=== PATIENT | female | born 1935 | race African-American/Black ===

== ENCOUNTER 2016-08-16 09:54 | Inpatient (IN) ==
[2016-08-16 10:34] LABS: Basophils % 0.2 % (0.0-0.8); Eosinophils % 0.2 % (0.00-10.9); Hematocrit 37.7 VOL% (35.7-47.0); Hemoglobin 13.1 GM/DL (12.0-16.0); Immature Granulocytes % 0.6 %; Immature Granulocytes Absolute 0.07 #; Lymphocytes # 1.5 10*3/uL (1.4-4.0); Lymphocytes % 12.4 % (21.3-54.2); Mean Corpuscular HGB Conc 34.7 GM/DL (32-36); Mean Corpuscular Hemoglobin 32 PG (27-34); Mean Corpuscular Volume 91.1 FL (87-102); Mean Platelet Volume 9.1 FL (9.6-12.0); Monocytes # 0.6 10*3/uL (0.11-0.8); Monocytes % 4.6 % (1.7-12.7); Neutrophils # 10.1 10*3/uL (1.4-7.4); Platelet Count 338 T/CUMM (130-400); Red Blood Count 4.14 MC/CUMM (3.8-5.5); White Blood Count 12.3 T/CUMM (4-12)
[2016-08-16 10:51] LABS: Alanine Aminotransferase 18 U/L (13-56); Albumin 3.3 G/DL (3.4-5.0); Alkaline Phosphatase 64 U/L (45-117); Aspartate Amino Transferase 16 U/L (0-37); Bilirubin,Total < 0.39 MG/DL (0.2-1.0); Blood Urea Nitrogen 71 MG/DL (7-18); Calcium 11.2 MG/DL (8.5-10.1); Glucose 67 MG/DL (74-106); Magnesium 2.2 MG/DL (1.8-2.4); Osmolality,Calculated 288.1 MOS/KG (273-304); Potassium 5.7 MMOL/L (3.5-5.1); Sodium 135 MMOL/L (136-145); Total Protein 8.7 G/DL (6.4-8.3)
[2016-08-16 10:56] LABS: Apearance,Urine Slightly Hazy (Clear); Bacteria,Urine Occasional /HPF (Few); Bilirubin,Urine Negative (Negative); Blood, Urine Negative (Negative); Glucose,Urine (UA) Negative (Negative); Ketones,Urine Negative (Negative); Mucus,Urine Occasional /LPF (Occasional); Nitrite,Urine Negative (Negative); Protein,Urine 30 MG/DL; RBC,Urine 1 /HPF (0-4); Squamous Epithelial Cell,Urine Occasional /HPF (0-10); Urine Color Yellow (Yellow); Urine Specific Gravity 1.009 (1.001-1.035); Urine Urobilinogen < 2.0 EU/DL (0.2-1.0); WBC,Urine 1 /HPF (0-6)
--- NOTE | 2016-08-16 11:11 | XRay Report ---
History: Abdominal pain and distention Date: 08/16/2016 Study: Chest x-ray AP portable Comparison exam: June 01, 2016 There is stable cardiomegaly. The mediastinal contours are unchanged. The pulmonary vasculature is not engorged. The lungs and pleural spaces are generally clear. There is mild thoracic spondylosis. Impression: No definite acute process compared to the previous study. Mild cardiomegaly PROCEDURE INTERPRETED AT [facility] DEPARTMENT OF RADIOLOGY Final Report Signed by: Dr. Lisa Holguin
[2016-08-16] MEDS ORDERED: DEXTROSE 50% 25 GM/50 ML VIAL IV STA (11:30)
--- NOTE | 2016-08-16 11:31 | CT Report ---
History: Abdominal pain and distention Date: 08/16/2016 Study: CT abdomen and pelvis without contrast Comparison exam: January 17, 2016 Technique: Spiral CT sections were obtained from the lung bases to the pubic symphysis without contrast. The CT exam was performed using one or more of the following dose reduction techniques: Automated exposure control, adjustment of the mA and/or kV according to patient size, or use of iterative reconstruction technique. CT abdomen: There is some minor strandy atelectasis/infiltrate in the left lower lobe. There is no gross pleural or pericardial effusion. There is no evidence of pneumoperitoneum. The gallbladder is surgically absent. Surgical clips are noted to be associated with the posterior gastric wall as before. The liver, spleen, pancreas, bile ducts, and adrenal glands are unchanged. There is no gross renal parenchymal abnormality. There is no hydronephrosis. There is a 4 mm nonobstructing renal stone noted in upper pole calyx on the left. There is no aneurysm of the moderately calcified abdominal aorta. The colon is slightly more distended than small bowel and is noted to contain a significant amount of fluid such as that which can be seen with diarrhea. There is no definite focal inflammatory wall thickening of the colon. CT pelvis: Some occasional small myometrial calcifications compatible with uterine leiomyomata are present. There is no abnormal fluid collection within the pelvis. There is moderate distention of the urinary bladder. No soft tissue mass or pelvic lymphadenopathy is seen. Impression: The colon is slightly more distended than small bowel, though no maeve mechanical bowel obstruction is appreciated. There is large amount of fluid in the colon such as that which can be seen with diarrhea. No definite focal inflammatory wall thickening of the colon is seen. Left nephrolithiasis without hydronephrosis or ureterolithiasis Nonspecific mild strandy and hazy left lower lobe atelectasis/infiltrate Other nonacute findings discussed above PROCEDURE INTERPRETED AT [facility] DEPARTMENT OF RADIOLOGY Final Report Signed by: Dr. Lisa Holguin
[2016-08-16] MEDS ORDERED: DEXTROSE 50% 25 GM/50 ML VIAL IV ONE (11:32)
--- NOTE | 2016-08-16 11:32 | Emergency Department Note ---
Judith Etienne Brittany, am scribing for, and in the presence of, Yimi Kern MD 10:45. Erlin Etienne Phillip K, MD, personally performed the services described in this documentation, ascribed by Jaqui Wong in my presence, and it is both accurate and complete . Arrival - Arrival Chief Complaint: Weakness Stated Complaint: weakness ED Nursing Triage Note: Pt's sitter called EMS for c/o generalized weakness and fatigue. pt has been home after being at skilled nursing for approx 1 week. when questioned, pt's only complaint is "short winded." pt denies chest pain. Glucose 76mg/dl, pt has not eaten breakfast. Mode of Arrival: Stretcher Limitations: No Limitations Source: Patient Time Seen by Provider: 08/16/16 10:17 - History of Present Illness HPI Narrative: This will be limited secondary to pt's dementia. This is an 81 y/o black female , who presents to the ED by EMS with c/o abdominal pain which started last night. She reports her last BM was last night. She denies a fever, nausea or vomiting. Pt has no other complaints/pain in the ED at this time. PT has a PMHx of CHF, HTN, NH, A-fib, NIDDM, thyroid disorder, dementia, GERD, adn anemia. PT has had a cardiac cath, cholecystectomy, and thyroid surgery. Pt has a family medical Hx of cancer, diabetes, heart disease, HTN, and stroke. Pt is a current every day smoker. Onset (ago): hour(s) (last night) Consistency: constant Severity: moderate Allergies/Adverse Reactions: Allergies Allergy/AdvReac Type Severity Reaction Status Date / Time carbamazepine [From Tegretol] Allergy Unknown Unknown/Unable Verified 08/16/16 10:05 to obtain Home Medications: Home Medications Medication Instructions Recorded Confirmed Type Donepezil HCl 10 mg PO BEDTIME 07/13/15 06/02/16 History Pantoprazole Sodium 40 mg PO BID 07/13/15 06/02/16 History Memantine HCl [Namenda] 5 mg PO BEDTIME 01/08/16 06/02/16 History Aspirin EC Tab 81 mg PO DAILY tablet 01/13/16 06/02/16 Rx Levothyroxine Tab [Synthroid Tab] 125 mcg PO DAILY 01/16/16 06/02/16 History Sucralfate 1 gm PO BIDAC 01/16/16 06/02/16 History Apixaban [Eliquis] 2.5 mg PO BID #30 tablet 02/02/16 06/02/16 Rx Glimepiride [Amaryl] 2 mg PO DAILY W/BREAKFAST #30 02/02/16 06/02/16 Rx tablet Furosemide 20 mg PO DAILY 06/02/16 06/02/16 History Lisinopril 5 mg PO DAILY 06/02/16 06/02/16 History Multivitamin with Minerals [One 1 each PO DAILY 06/02/16 06/02/16 History Daily Plus Minerals] Nitroglycerin Sl Tab [Nitrostat] 0.4 mg SL Q5M PRN 06/02/16 06/02/16 History Review of System - Review of System 12 point system: reviewed and no additional remarkable complaints except as stated - Review of System Constitutional: Absent: fever Gastrointestinal: Present: abdominal pain. Absent: nausea, vomiting, diarrhea Medical,Surgical,& Family Hx - Medical History Cardio: History of: Cardiac Dysrhythmia (A-Fib), CHF, CAD, Hypertension, NH, Cardiovascular Problems Neurology: History of: Dementia No history of: Brain Aneurysm, Cerebral Hemorrhage, Cerebrovascular Accident , Cerebral Palsy, Migraine, Multiple Sclerosis, Parkinson's Disease, Peripheral Neuropathy, Seizures, TIA, Vertigo, Neurologocal Cancer HEENT: History of: Dental Problems (Missing lower teeth, lost her lower dentures.) No history of: Ear Problem, Eye Problem, Glaucoma, Oral Cancer, HEENT Problems Endocrine: History of: Diabetes Mellitus (NIDDM), Thyroid Disorder (Goiter was removed, but she can't remember when.) No history of: Adrenal Disease, Diabetes Mellitus (IDDM), Endocrine Cancer, Endocrine Problems Rheumatology: No history of;: Psoriasis, Sjogrens, Systemic Lupus Erythematosus Gastrointestinal: History of: GERD Musculoskeletal: History of: Musculoskeletal Problems (arthritis, pain in left shoulder) No history of: Amputation Hematology: History of: Anemia (Takes iron pills.) No history of: Blood Transfusion Reaction, Bleeding Problems, Clotting Problems, Sickle Cell Disease, Hematologic Cancer, Blood Disorders Other: No history of: Anesthesia Reactions, Anaphylaxis, Cancer, Eczema, HIV, Malignant Hyperthermia, MRSA, Vancomycin-Resistant Enterococci, Skin Problems, Miscellaneous Medical Problems - Surgical History Cardiac Surgeries: Sugical HX of: Cardiac Catheterization Thoracic Surgeries: Patient denies;: Organ Transplant, Lobectomy Neurologic Surgeries: Patient denies: Brain Aneurysm, Cerebral Hemorrhage, Neurologic Surgery HEENT Surgeries: Surgical HX of: Thyroid Surgery (Goiter was removed, but she can't remember when.) Patient denies: Eye Surgery, Tonsilectomy & Adenoidectomy Abdominal Surgeries: Surgical HX of: Cholecystectomy Patient denies: Abdominal Surgery Reproductive Surgeries: Patient denies;: Genitourinary Surgery, Gynecologic Surgery Orthopedic Surgeries: Patient denies;: Implanted Devices, Orthopedic Surgery, Spinal Surgery, Total Hip Replacement, Total Knee Replacement - Family History Family History: Reports;: Family Cancer (Daughter from kidney cancer.), Family Diabetes (Mother), Family Heart Disease (Father), Family Hypertension ( Father), Family Stroke (Father) - Social History Smoking Status: Current every day smoker Frequency of Alcohol Use: None Type of Drug Use: None Exam Vital Signs: Vital Signs Temperature 97.4 F L 08/16/16 09:54 Pulse Rate 96 H 08/16/16 09:54 Respiratory Rate 16 08/16/16 09:54 Blood Pressure 114/75 08/16/16 09:54 O2 Sat by Pulse Oximetry 96 08/16/16 09:54 - General General appearance: alert (Alert to place and person), in no apparent distress - Head Head exam: Present: atraumatic, normocephalic, normal inspection - Eye Eye exam: Present: normal appearance, PERRL, EOMI, scleral icterus. Absent: miosis, mydriasis - ENT ENT exam: Present: normal exam, normal oropharynx, mucous membranes moist, TM's normal bilaterally, normal external ear exam - Neck Neck exam: Present: normal inspection, full ROM, trachea midline. Absent: tenderness, meningismus, lymphadenopathy, thyromegaly - Chest Chest inspection: Present: normal inspection, symmetric chest wall rise. Absent : tenderness, rash, abscess - Respiratory Respiratory exam: Present: normal lung sounds bilaterally. Absent: rales, respiratory distress, rhonchi, stridor, wheezes - Cardiovascular Cardiovascular exam: Present: normal rhythm, tachycardia - Abdominal Exam Abdominal exam: Present: soft, distention, hyperactive bowel sounds (High- pitched, tinkling sounds ). Absent: tenderness (Abdomen is NTTP), guarding, rebound, rigidity - Rectal Exam Rectal exam: Present: heme (-) stool. Absent: fecal impaction - Extremities Exam Extremities exam: Present: normal inspection, full ROM, normal capillary refill. Absent: tenderness, pedal edema, joint swelling, calf tenderness - Back Exam Back exam: Present: normal inspection, full ROM, rashes. Absent: tenderness, muscle spasm - Neurological Exam Neurological exam: Present: alert, CN II-XII intact, other (Unable to move BLE off the stretcher, full time is is weak but equal. ). Absent: oriented X3 (Oriented to place and person), motor sensory deficit - Psychiatric Psychiatric exam: Present: normal affect, normal mood. Absent: depressed, agitated, anxious, flat affect, manic - Skin Skin exam: Present: warm, dry, intact, normal color, erythema. Absent: rash, cyanosis, diaphoresis Course Course Narrative: Admitted to the hospitalist. Results - Labs CBC & BMP: 08/16/16 10:14 08/16/16 10:14 Lab Results: I have reviewed the patients labs Labs: Laboratory Tests 08/16/16 08/16/16 08/16/16 10:14 10:14 10:14 WBC 12.3 H RBC 4.14 Hgb 13.1 Hct 37.7 MCV 91.1 MCH 32 MCHC 34.7 RDW 15.0 Plt Count 338 MPV 9.1 L Neut % (Auto) 82.0 H Lymph % (Auto) 12.4 L [place] % (Auto) 4.6 Eos % (Auto) 0.2 Baso % (Auto) 0.2 Neut # (Auto) 10.1 H Lymph # (Auto) 1.5 [place] # (Auto) 0.6 Eos # (Auto) 0.0 Baso # (Auto) 0.0 Immature Gran % 0.6 Nucleated RBC % 0.0 Immature Gran # 0.07 Nucleated RBCs # 0.00 Sodium 135 L Potassium 5.7 H Chloride 111 H Carbon Dioxide 12 L Anion Gap 17.7 H BUN 71 H Creatinine 3.10 H GFR Calculation 16 BUN/Creatinine Ratio 22.00 H Glucose 67 L Calculated Osmolality 288.1 Calcium 11.2 H Magnesium 2.2 Total Bilirubin < 0.39 AST 16 ALT 18 Alkaline Phosphatase 64 B-Natriuretic Peptide Total Protein 8.7 H Albumin 3.3 L Globulin 5.4 H Albumin/Globulin Ratio 0.6 L Lipase 319.0 Urine Color Yellow Urine Appearance Slightly hazy Urine pH 5.0 Ur Specific [place] 1.009 Urine Protein 30 Urine Glucose (UA) Negative Urine Ketones Negative Urine Blood Negative Urine Nitrate Negative Urine Bilirubin Negative Urine Urobilinogen < 2.0 H Urine Leukocytes Negative Urine RBC 1 Urine WBC 1 Ur Squamous Epith Cells Occasional Urine Bacteria Occasional Urine Mucus Occasional Ur Culture Indicated? Not indicated 08/16/16 10:37 WBC RBC Hgb Hct MCV MCH MCHC RDW Plt Count MPV Neut % (Auto) Lymph % (Auto) [place] % (Auto) Eos % (Auto) Baso % (Auto) Neut # (Auto) Lymph # (Auto) [place] # (Auto) Eos # (Auto) Baso # (Auto) Immature Gran % Nucleated RBC % Immature Gran # Nucleated RBCs # Sodium Potassium Chloride Carbon Dioxide Anion Gap BUN Creatinine GFR Calculation BUN/Creatinine Ratio Glucose Calculated Osmolality Calcium Magnesium Total Bilirubin AST ALT Alkaline Phosphatase B-Natriuretic Peptide 161 H Total Protein Albumin Globulin Albumin/Globulin Ratio Lipase Urine Color Urine Appearance Urine pH Ur Specific [place] Urine Protein Urine Glucose (UA) Urine Ketones Urine Blood Urine Nitrate Urine Bilirubin Urine Urobilinogen Urine Leukocytes Urine RBC Urine WBC Ur Squamous Epith Cells Urine Bacteria Urine Mucus Ur Culture Indicated? - EKG EKG results: interpreted by ERMD, sinus rhythm (Left bundle branch block) - Diagnostic Findings Procedure: Chest x-ray: report reviewed by me (No definite acute process compared to the previous study. Mild cardiomegaly. ), CT Abdomen and Pelvis: report reviewed by me (The colon is slightly more distended than small bowel, though no maeve mechanical bowel obstruction is appreciated. There is large amout of fluid in the colon such as that which can be seen with diarrhea. No definited focal inflammatory wall thickening of the colon is seen. ) Disposition Clinical Impression: Dehydration, Diarrhea, Abdominal distention, Acute on chronic renal failure, Hypoglycemia, Debility, High anion gap metabolic acidosis, Hyperkalemia, Metabolic acidosis Case discussed with: patient's physician Disposition: Still a Patient Condition: Guarded
[2016-08-16] MEDS ORDERED: SODIUM CHLORIDE 0.9% 500 ML IV STA (11:39)
[2016-08-16] MEDS ORDERED: SODIUM CHLORIDE 0.9% 1,000 ML IV SCH (13:48)
[2016-08-16] MEDS ORDERED: ONDANSETRON 4 MG/2 ML VIAL IV PRN (13:48)
--- NOTE | 2016-08-16 14:32 | Hospitalist History & Physical ---
<Bobby Wilkes - Last Filed: 08/16/16 15:12> Assessment and Plan (1) Abdominal distention Status: Acute Assessment and plan: CT revealed 'no maeve mechanical obstruction: Slightly more distended and small bowel'. Current Visit: Yes (2) Acute on chronic renal failure Status: Acute Assessment and plan: Consult nephrology to follow patient. BUN/creatinine has increased to 71/3.1 today from 33 on 06/02/16. Current Visit: Yes (3) Debility Status: Acute Current Visit: Yes (4) Dehydration Status: Acute Assessment and plan: Gentle hydration. Recheck labs in a.m. Current Visit: Yes (5) Diarrhea Status: Acute Assessment and plan: Clear liquid diet. Gentle hydration. Current Visit: Yes (6) Hyperkalemia Status: Acute Assessment and plan: Potassium is 5.7. Cardiac monitoring of patient. Recheck labs in a.m. Current Visit: Yes (7) Hypoglycemia Status: Acute Assessment and plan: Accu-Cheks before meals at bedtime. Hold medications for now. Current Visit: Yes (8) Altered level of consciousness Status: Acute Assessment and plan: Pt. has dementia. Pt does also have elevated white counts so further labs will be obtained. Current Visit: No History of Present Illness Chief complaint: Weakness History of present illness: Ms. Abel is a 81 year old black female with a history of CHF, hypertension, NC, A. fib, diabetes, thyroid disorder, dementia, GERD, and anemia that presented to the ED today for further evaluation. Patient is accompanied by her daughter who is present at bedside and provides history. Patient had been in a 20 day rehab facility in [place] and was just released home on Tuesday. Patient has 24-hour janitor caretaker in home with her. Patient's daughter states that since her release home she has been experiencing weakness and fatigue as well as diarrhea. She also reports that the patient began to have some abdominal pain. She stated that the patient has been having issues with diarrhea since Tuesday and that on Tuesday she had at least 5 diarrhea stools. On examination, patient is oriented to self only. CT of abdomen and pelvis revealed no maeve mechanical bowel obstruction although the colon is slightly more distended than the small bowel. There was also a large amount of fluid in the colon. White blood count was 4.3, K5.7, BUN 71, creatinine 3.1. Patient will be admitted to the hospitalist service for further evaluation and treatment. Home Medications Medication Instructions Recorded Confirmed Type Donepezil HCl 10 mg PO BEDTIME 07/13/15 06/02/16 History Pantoprazole Sodium 40 mg PO BID 07/13/15 08/16/16 History Levothyroxine Tab [Synthroid Tab] 125 mcg PO DAILY 01/16/16 08/16/16 History Sucralfate 1 gm PO BIDAC 01/16/16 08/16/16 History Apixaban [Eliquis] 2.5 mg PO BID #30 tablet 02/02/16 06/02/16 Rx Furosemide 20 mg PO DAILY 06/02/16 08/16/16 History Lisinopril 5 mg PO DAILY 06/02/16 08/16/16 History Nitroglycerin Sl Tab [Nitrostat] 0.4 mg SL Q5M PRN 06/02/16 08/16/16 History Dexlansoprazole [Dexilant] 08/16/16 History Glimepiride [Amaryl] 4 mg PO BID 08/16/16 08/16/16 History Linagliptin [Tradjenta] 5 mg PO DAILY 08/16/16 08/16/16 History Megestrol Acetate 200 ml PO TID W/MEALS 08/16/16 08/16/16 History Allergies Allergy/AdvReac Type Severity Reaction Status Date / Time carbamazepine [From Tegretol] Allergy Unknown Unknown/Unable Verified 08/16/16 10:05 to obtain Medical,Surgical,& Family Hx - Medical History Cardio: History of: Cardiac Dysrhythmia (A-Fib), CHF, CAD, Hypertension, NC, Cardiovascular Problems Psychological: No history of: Anxiety Disorders, ADHD, Behavior Problems, Bipolar Disorder, Depression, Previous Suicide Attempt, Psychiatric/Substance Abuse Tx, Schizophrenia, Violent Behavior, Psychiatric Problems Neurology: History of: Dementia No history of: Brain Aneurysm, Cerebral Hemorrhage, Cerebrovascular Accident , Cerebral Palsy, Migraine, Multiple Sclerosis, Parkinson's Disease, Peripheral Neuropathy, Seizures, TIA, Vertigo, Neurologocal Cancer HEENT: History of: Dental Problems (Missing lower teeth, lost her lower dentures.) No history of: Ear Problem, Eye Problem, Glaucoma, Oral Cancer, HEENT Problems Endocrine: History of: Diabetes Mellitus (NIDDM), Thyroid Disorder (Goiter was removed, but she can't remember when.) No history of: Adrenal Disease, Diabetes Mellitus (IDDM), Endocrine Cancer, Endocrine Problems Rheumatology: No history of;: Psoriasis, Sjogrens, Systemic Lupus Erythematosus Gastrointestinal: History of: GERD Musculoskeletal: History of: Musculoskeletal Problems (arthritis, pain in left shoulder) No history of: Amputation Hematology: History of: Anemia (Takes iron pills.) No history of: Blood Transfusion Reaction, Bleeding Problems, Clotting Problems, Sickle Cell Disease, Hematologic Cancer, Blood Disorders Other: No history of: Anesthesia Reactions, Anaphylaxis, Cancer, Eczema, HIV, Malignant Hyperthermia, MRSA, Vancomycin-Resistant Enterococci, Skin Problems, Miscellaneous Medical Problems - Surgical History Cardiac Surgeries: Sugical HX of: Cardiac Catheterization Thoracic Surgeries: Patient denies;: Organ Transplant, Lobectomy Neurologic Surgeries: Patient denies: Brain Aneurysm, Cerebral Hemorrhage, Neurologic Surgery HEENT Surgeries: Surgical HX of: Thyroid Surgery (Goiter was removed, but she can't remember when.) Patient denies: Eye Surgery, Tonsilectomy & Adenoidectomy Abdominal Surgeries: Surgical HX of: Cholecystectomy Patient denies: Abdominal Surgery Reproductive Surgeries: Patient denies;: Genitourinary Surgery, Gynecologic Surgery Orthopedic Surgeries: Patient denies;: Implanted Devices, Orthopedic Surgery, Spinal Surgery, Total Hip Replacement, Total Knee Replacement - Family History Family History: Reports;: Family Cancer (Daughter from kidney cancer.), Family Diabetes (Mother), Family Heart Disease (Father), Family Hypertension ( Father), Family Stroke (Father) - Social History Smoking Status: Former smoker Frequency of Alcohol Use: None Type of Drug Use: None Marital Status: 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 Absent: periorbital swelling Pupils: Present: SAADIA. Absent: dilated - Respiratory Respiratory exam: Present: clear to auscultation bilaterally. Absent: wheezes - Cardiovascular Cardiovascular exam: Present: regular rate and rhythm - GI/Abdominal GI/Abdominal exam: Present: normal bowel sounds, soft. Absent: tenderness - Extremities Exam Extremities exam: Present: normal capillary refill, full ROM. Absent: edema - Neurological Exam Neurological exam: Present: altered - Psychiatric Psychiatric exam: Absent: normal affect, normal mood - Skin Skin exam: Present: normal color, warm, dry Results - Labs CBC & BMP: 08/16/16 10:14 08/16/16 10:14 Lab Results: I have reviewed the past 24 hour labs Quality Measures - Stroke Symptom Onset Unknown: No <Monica Xiong - Last Filed: 08/16/16 16:12> History of Present Illness History of present illness: Ms. Abel is a 81 year old female with multiple medical issues who was recently sent home from a Nursing facility. Her health status began deteriorating at home and family members wanted her evaluated. Plan I agree with the above management CT head Hydrate gently and hold bp meds for now BC SSC/accuchecks Avoid nephrotoxics Kayexalate x1 Labs in am Exam - Constitutional Vitals: Period Temp Pulse Resp BP Sys/[place] Pulse Ox Last 24 Hr 97.4 F-97.4 F 91-100 16-18 109-129/69-83 96-100 Results - Labs CBC & BMP: 08/16/16 10:14 08/16/16 10:14
[2016-08-16] MEDS ORDERED: NITROGLYCERIN SL 0.4 MG TABLET SL PRN (15:11)
[2016-08-16] MEDS: SUCRALFATE 1 GM TABLET PO SCH (16:05)
[2016-08-16] MEDS: ENOXAPARIN 30 MG/0.3 ML SYRINGE SUBCUT SCH (16:05)
--- NOTE | 2016-08-16 16:06 | CT Report ---
CT head/brain wo con INDICATION: Altered mental status/confusion decreased level of consciousness The total DLP is 970 mGy*cm. COMPARISON: Noncontrast CT head dated January 27, 2016 Technique: Serial axial tomographic images of the brain were obtained without the use of intravenous contrast. Dose reduction: This CT exam was performed using one or more of the following dose reduction techniques: Automated exposure control, automated adjustment of the mA and/or KV according to patient size, or use of iterative reconstruction technique. Findings: Advanced generalized atrophy is noted with mild prominence of the sulci and cortical volume loss. Periventricular white matter hypodensity changes are noted bilaterally which do not demonstrate mass effect and are nonspecific but favored to represent sequela of chronic microvascular ischemia. There is also suggestion of hypodensity within the brainstem, which may be related to artifact from adjacent prominent osseous structures near the skull base versus underlying microvascular ischemic changes. There is no evidence of vascular territory infarct or acute intracranial hemorrhage. The madrigal-white matter differentiation is generally maintained. There is no hydrocephalus. The basilar cisterns are patent. The visualized paranasal sinuses, mastoid air cells and middle ear cavities are predominantly clear. The included orbits and their contents appear within normal limits. The visualized osseous structures and overlying soft tissues of the skull and face demonstrate no acute abnormality. IMPRESSION: No acute intracranial hemorrhage or vascular territory infarction. Advanced atrophy and sequela of chronic microvascular ischemia. PROCEDURE INTERPRETED AT [facility] DEPARTMENT OF RADIOLOGY Final Report Signed by: Irvin Baires
[2016-08-16] MEDS ORDERED: SODIUM POLYSTYRENE SULFATE 15 GM/60 ML BOTTLE PO ONE (16:11)
[2016-08-16] MEDS: INSULIN REGULAR 100 UNIT/ML SUBCUT SCH ×2 (16:30→20:05)
[2016-08-16] MEDS ORDERED: SODIUM BICARBONATE 50 MEQ/50 ML VIAL IV ONE (17:14)
--- NOTE | 2016-08-16 17:19 | Nephrology Consult Note ---
History of Present Illness Chief complaint: ARF with volume depletion History of present illness: Ms. Abel is a 81 year old female brought in by her family from recent discharge from a [facility]dc. She has been having some diarrhea and eating and drinking very poorly. Her creatinine is 3.1 and in May was about 1. Past history significant for diabetes multiple medical problems. She is bedbound at present. On exam she is arousable but keeps her eyes closed neck veins are absolutely flat and skin is doughy. Heart without rub or gallop lungs are clear abdomen mildly protuberant but soft. Extremities without edema. Further review of lab reveals a metabolic acidosis with a measured bicarb of 12 which has resulted in a potassium of 5.7. Chest x-ray reveals no evidence of volume overload. Impression: #1 acute renal failure secondary to volume depletion #2 volume depletion secondary to diarrhea #3 metabolic acidosis secondary to diarrhea #4 hyperkalemia secondary to metabolic acidosis. Plan will increase IV fluids. #2 administer intravenous bicarbonate. Home Medications Medication Instructions Recorded Confirmed Type Donepezil HCl 10 mg PO BEDTIME 07/13/15 08/16/16 History Pantoprazole Sodium 40 mg PO BID 07/13/15 08/16/16 History Levothyroxine Tab [Synthroid Tab] 125 mcg PO DAILY 01/16/16 08/16/16 History Sucralfate 1 gm PO BIDAC 01/16/16 08/16/16 History Furosemide 20 mg PO DAILY 06/02/16 08/16/16 History Lisinopril 5 mg PO DAILY 06/02/16 08/16/16 History Nitroglycerin Sl Tab [Nitrostat] 0.4 mg SL Q5M PRN 06/02/16 08/16/16 History Apixaban [Eliquis] 1.25 mg PO BID 08/16/16 08/16/16 History Dexlansoprazole [Dexilant] 60 mg PO DAILY 08/16/16 08/16/16 History Glimepiride [Amaryl] 4 mg PO BID 08/16/16 08/16/16 History Linagliptin [Tradjenta] 5 mg PO DAILY 08/16/16 08/16/16 History Megestrol Acetate 200 ml PO TID W/MEALS 08/16/16 08/16/16 History Allergies Allergy/AdvReac Type Severity Reaction Status Date / Time carbamazepine [From Tegretol] Allergy Unknown Unknown/Unable Verified 08/16/16 10:05 to obtain Medical,Surgical,& Family Hx - Medical History Cardio: History of: Cardiac Dysrhythmia (A-Fib), CHF, CAD, Hypertension, [place], Cardiovascular Problems Psychological: No history of: Anxiety Disorders, ADHD, Behavior Problems, Bipolar Disorder, Depression, Previous Suicide Attempt, Psychiatric/Substance Abuse Tx, Schizophrenia, Violent Behavior, Psychiatric Problems Neurology: History of: Dementia No history of: Brain Aneurysm, Cerebral Hemorrhage, Cerebrovascular Accident , Cerebral Palsy, Migraine, Multiple Sclerosis, Parkinson's Disease, Peripheral Neuropathy, Seizures, TIA, Vertigo, Neurologocal Cancer HEENT: History of: Dental Problems (Missing lower teeth, lost her lower dentures.) No history of: Ear Problem, Eye Problem, Glaucoma, Oral Cancer, HEENT Problems Endocrine: History of: Diabetes Mellitus (NIDDM), Thyroid Disorder (Goiter was removed, but she can't remember when.) No history of: Adrenal Disease, Diabetes Mellitus (IDDM), Endocrine Cancer, Endocrine Problems Rheumatology: No history of;: Psoriasis, Sjogrens, Systemic Lupus Erythematosus Gastrointestinal: History of: GERD Musculoskeletal: History of: Musculoskeletal Problems (arthritis, pain in left shoulder) No history of: Amputation Hematology: History of: Anemia (Takes iron pills.) No history of: Blood Transfusion Reaction, Bleeding Problems, Clotting Problems, Sickle Cell Disease, Hematologic Cancer, Blood Disorders Other: No history of: Anesthesia Reactions, Anaphylaxis, Cancer, Eczema, HIV, Malignant Hyperthermia, MRSA, Vancomycin-Resistant Enterococci, Skin Problems, Miscellaneous Medical Problems - Surgical History Cardiac Surgeries: Sugical HX of: Cardiac Catheterization Thoracic Surgeries: Patient denies;: Organ Transplant, Lobectomy Neurologic Surgeries: Patient denies: Brain Aneurysm, Cerebral Hemorrhage, Neurologic Surgery HEENT Surgeries: Surgical HX of: Thyroid Surgery (Goiter was removed, but she can't remember when.) Patient denies: Eye Surgery, Tonsilectomy & Adenoidectomy Abdominal Surgeries: Surgical HX of: Cholecystectomy Patient denies: Abdominal Surgery Reproductive Surgeries: Patient denies;: Genitourinary Surgery, Gynecologic Surgery Orthopedic Surgeries: Patient denies;: Implanted Devices, Orthopedic Surgery, Spinal Surgery, Total Hip Replacement, Total Knee Replacement - Family History Family History: Reports;: Family Cancer (Daughter from kidney cancer.), Family Diabetes (Mother), Family Heart Disease (Father), Family Hypertension ( Father), Family Stroke (Father) - Social History Smoking Status: Former smoker Frequency of Alcohol Use: None Type of Drug Use: None Review of Systems 12 point system: reviewed and no additional remarkable complaints except as stated Exam - Vital Signs Vital signs: Period Temp Pulse Resp BP Sys/Garduno Pulse Ox Last 24 Hr 97.4 F-97.6 F 62-100 16-20 101-129/68-83 96-100 - General Appearance General appearance: well-developed, well-nourished, appears started age EENT: ATNC Neck: no JVD, no thyromegaly, no carotid bruit, supple Respiratory: no kyphosis, no scoliosis Cardiology: no murmurs, no rub, no gallops, no edema, regular rate, regular rhythm, normal S1, normal S2 Gastrointestinal: normoactive bowel sounds Integumentary: no rash, warm and dry Neurologic: no focal deficit, no asterixis, alert and oriented x3, reflexes 2+ and symmetric, gait normal, strength 5/5 Musculoskeletal: no deformities, no erythema, no cyanosis, no clubbing Psychiatric: mood/affect appropriate, depressed, cooperative Results - Labs CBC & BMP: 08/16/16 10:14 08/16/16 10:14 Assessment and Plan - Time spent with patient Time spent with patient: Greater than 30 minutes (1) Acute renal failure Status: Acute Assessment and plan: due to volume depletion. Hold Lisinopril and increase fluid. Give bicarb which should be sufficient to correct hyperkalemia Current Visit: No Specialty Discharge - Follow Up or Referrals - Speciality Discharge Instructions Nephrology Instructions: Increased volume, supplement bicarb, follow creatinine. Expect potassium to fall with correction of acidosis.
[2016-08-16] MEDS: SODIUM ACETATE 50 MEQ in SODIUM CHLORIDE 0.45% 1,000 ML IV SCH (18:22)
[2016-08-16] MEDS ORDERED: SODIUM ACETATE IV ONE (19:00)
[2016-08-16] MEDS ORDERED: SODIUM CHLORIDE 0.9% IV ONE (19:00)
[2016-08-16 19:41] LABS: Apearance,Urine Slightly Hazy (Clear); Bilirubin,Urine Negative (Negative); Blood, Urine Negative (Negative); Glucose,Urine (UA) Negative (Negative); Granular Casts,Urine 11 /LPF (0-1); Hyaline Casts,Urine 5 /LPF (0-3); Ketones,Urine Negative (Negative); Mucus,Urine Occasional /LPF (Occasional); Nitrite,Urine Negative (Negative); Protein,Urine Negative; Urine Color Yellow (Yellow); Urine Specific Gravity 1.009 (1.001-1.035); Urine Urobilinogen < 2.0 EU/DL (0.2-1.0)
[2016-08-16] MEDS: DONEPEZIL 10 MG TABLET PO SCH (20:36)
[2016-08-17] MEDS: SODIUM ACETATE 50 MEQ in SODIUM CHLORIDE 0.45% 1,000 ML IV SCH ×4 (04:15→23:20)
[2016-08-17 06:07] LABS: Basophils % 0.4 % (0.0-0.8); Eosinophils % 0.3 % (0.00-10.9); Hematocrit 34.1 VOL% (35.7-47.0); Hemoglobin 11.7 GM/DL (12.0-16.0); Immature Granulocytes % 0.7 %; Immature Granulocytes Absolute 0.05 #; Lymphocytes % 12.6 % (21.3-54.2); Mean Corpuscular HGB Conc 34.3 GM/DL (32-36); Mean Corpuscular Hemoglobin 31 PG (27-34); Mean Platelet Volume 9.4 FL (9.6-12.0); Monocytes # 0.5 10*3/uL (0.11-0.8); Monocytes % 5.9 % (1.7-12.7); Neutrophils # 6.1 10*3/uL (1.4-7.4); Neutrophils % 80.1 % (38.7-73.9); Platelet Count 314 T/CUMM (130-400); Red Blood Count 3.79 MC/CUMM (3.8-5.5); Red Cell Distribution Width 14.8 % (9.3-17.3); White Blood Count 7.6 T/CUMM (4-12)
[2016-08-17 06:54] LABS: Calcium 9.9 MG/DL (8.5-10.1); Magnesium 2.2 MG/DL (1.8-2.4); Osmolality,Calculated 300.3 MOS/KG (273-304); Potassium 4.6 MMOL/L (3.5-5.1); Risk Ratio 2.78; Thyroid Stimulating Hormone 4.12 uIU/ml (0.358-3.74); VLDL CHOLESTEROL 28.8 MG/DL
--- NOTE | 2016-08-17 07:42 | EKG Report ---
Stationary ECG Study [facility] ER Test Date: 08/16/2016 10:53:15 AM Pat Name: TINA KUHN Department: Room: 527 Gender: F Room Service Runner: : [id number] Requested by: Yimi Poe Order Number: [id number] Reading MD: TASHI DUNN Intervals Gamaliel Rate: 90 P: 64 TX: 173 QRS: -1 QRSD: 130 T: 110 QT: 384 QTc: 432 Interpretive Statements SINUS RHYTHM WITH OCCASIONAL SUPRAVENTRICULAR PREMATURE COMPLEXES LEFT BUNDLE BRANCH BLOCK Electronically Signed On 08-18-16 15:26:30 CDT by TASHI DUNN [email or web address]
[2016-08-17] MEDS: SUCRALFATE 1 GM TABLET PO SCH ×2 (08:46→16:09)
[2016-08-17] MEDS: PANTOPRAZOLE 40 MG TABLET PO SCH (08:46)
[2016-08-17] MEDS: LEVOTHYROXINE 125 MCG TABLET PO SCH (08:47)
[2016-08-17] MEDS: INSULIN REGULAR 100 UNIT/ML SUBCUT SCH ×4 (08:50→20:49)
[2016-08-17] MEDS ORDERED: FUROSEMIDE 20 MG TABLET PO SCH (09:00)
[2016-08-17] MEDS ORDERED: LISINOPRIL 5 MG TABLET PO SCH (09:00)
--- NOTE | 2016-08-17 10:04 | Hospitalist Progress Note ---
<Bobby Wikles - Last Filed: 08/17/16 09:54> Assessment and Plan (1) Abdominal distention Status: Acute Assessment and plan: CT revealed 'no maeve mechanical obstruction: Slightly more distended and small bowel'. 08/17 Abdomen still slightly distended. Pt. is reporting loose stools. No tenderness noted. Current Visit: Yes (2) Acute on chronic renal failure Status: Acute Assessment and plan: Consult nephrology to follow patient. BUN/creatinine has increased to 71/3.1 today from 33 on 06/02/16. 08/17 Nephrology is following patient. Bun/creatinine has decreased slightly 68/ 2.50 Current Visit: Yes (3) Debility Status: Acute Assessment and plan: Consult PT to eval/treat Current Visit: Yes (4) Dehydration Status: Acute Assessment and plan: Gentle hydration. Recheck labs in a.m. 08/17 Pt. tolerating fluids well. Continue to hydrate. Nephrology noted. Current Visit: Yes (5) Diarrhea Status: Acute Assessment and plan: Clear liquid diet. Gentle hydration. Current Visit: Yes (6) Hyperkalemia Status: Acute Assessment and plan: Potassium is 5.7. Cardiac monitoring of patient. Recheck labs in a.m. 08/17 Pt. is 4.6 today. Current Visit: Yes (7) Hypoglycemia Status: Acute Assessment and plan: Accu-Cheks before meals at bedtime. Hold medications for now. 08/17 Blood sugars have increased. Pt. was 95 this am. Continue accuchecks. Current Visit: Yes (8) Altered level of consciousness Status: Acute Assessment and plan: Pt. has dementia. Pt does also have elevated white counts so further labs will be obtained. 08/17 ammonia level was normal. WBC have decreased. Pt. is more alert and oriented this morning. Current Visit: No Hospitalist: Subjective Interval history: Pt. seen and examined this morning. Chart reviewed. Spoke with RN regarding patient's status. Daughter present at bedside. Patient is more alert and oriented this morning. Patient denies any complaints this morning. No shortness of breath or abdominal pain expressed. No apparent distress noted. Patient still having loose stools. Stools tested and are negative. WBC has lowered this am. Will continue to monitor. Exam - Constitutional Vitals: Period Temp Pulse Resp BP Sys/Garduno Pulse Ox Last 24 Hr 97.6 F-98.5 F 62-114 16-20 96-129/54-83 94-100 General appearance: normal weight, no acute distress - Head Head exam: Present: normal inspection, normocephalic - Eye Eye exam: Present: EOMI. Absent: scleral icterus Pupils: Present: SAADIA. Absent: fixed - ENT ENT exam: Present: normal exam - Neck Neck exam: Present: normal inspection. Absent: thyromegaly - Respiratory Respiratory exam: Present: clear to auscultation bilaterally. Absent: wheezes - Cardiovascular Cardiovascular exam: Present: regular rate and rhythm - GI/Abdominal GI/Abdominal exam: Present: normal bowel sounds, soft. Absent: tenderness - Extremities Exam Extremities exam: Present: normal capillary refill. Absent: full ROM, edema - Neurological Exam Neurological exam: Present: alert, oriented X3 - Psychiatric Psychiatric exam: Present: normal affect, normal mood - Skin Skin exam: Present: normal color, warm, dry Results - Labs CBC & BMP: 08/17/16 05:46 08/17/16 05:46 Lab Results: I have reviewed the past 24 hour labs Quality Measures - Stroke Symptom Onset Unknown: No <Monica Xiong - Last Filed: 08/17/16 13:44> Hospitalist: Subjective Interval history: CT head and CXR- unremarkable.Patient states she feels better today. Exam - Constitutional Vitals: Period Temp Pulse Resp BP Sys/Garduno Pulse Ox Last 24 Hr 97.6 F-98.5 F 62-114 16-20 96-121/54-68 94-100 Results - Labs CBC & BMP: 08/17/16 05:46 08/17/16 05:46
[2016-08-17] MEDS: ENOXAPARIN 30 MG/0.3 ML SYRINGE SUBCUT SCH (16:09)
--- NOTE | 2016-08-17 16:17 | Nephrology Progress Note ---
Nephrology - PN: Subj Interval history: Ms. Desai is seen in follow-up of her acute renal failure. She is much improved with a creatinine now down to 2.5. She is more awake as well she still appears volume depleted with decreased skin turgor and flat neck veins. Her abdomen is flatter and softer with good bowel sounds today and she says she is hungry and is taking a liquid diet. We will continue IV fluids with sodium acetate to correct her metabolic acidosis. Her measured bicarb today is 13 we will give 1 amp of sodium bicarb again. Her potassium is well controlled at 4.6. Exam (PN)-Nephrology - Vital Signs Vital signs: Period Temp Pulse Resp BP Sys/Garduno Pulse Ox Last 24 Hr 97.6 F-98.5 F 62-114 16-20 96-121/54-68 94-100 - Lab 08/17/16 05:46 08/17/16 05:46 Most recent lab results Calcium 9.9 MG/DL (8.5-10.1) 08/17/16 05:46 Magnesium 2.2 MG/DL (1.8-2.4) 08/17/16 05:46 Assessment and Plan (1) Acute renal failure Status: Acute Assessment and plan: due to volume depletion. Hold Lisinopril and increase fluid. Give bicarb which should be sufficient to correct hyperkalemia Current Visit: No
[2016-08-17] MEDS ORDERED: SODIUM BICARBONATE 50 MEQ/50 ML VIAL IV ONE (16:18)
[2016-08-17] MEDS ORDERED: DEXTROSE 5% IV ONE (17:30)
[2016-08-17] MEDS ORDERED: SODIUM ACETATE IV ONE (17:30)
[2016-08-17] MEDS: DONEPEZIL 10 MG TABLET PO SCH (20:49)
[2016-08-18] MEDS: SODIUM ACETATE 50 MEQ in SODIUM CHLORIDE 0.45% 1,000 ML IV SCH ×3 (03:55→20:29)
[2016-08-18 06:43] LABS: Basophils % 0.2 % (0.0-0.8); Eosinophils % 0.3 % (0.00-10.9); Hematocrit 30.7 VOL% (35.7-47.0); Hemoglobin 10.4 GM/DL (12.0-16.0); Immature Granulocytes % 0.8 %; Immature Granulocytes Absolute 0.05 #; Lymphocytes # 1.4 10*3/uL (1.4-4.0); Mean Corpuscular HGB Conc 33.9 GM/DL (32-36); Mean Corpuscular Hemoglobin 30 PG (27-34); Mean Corpuscular Volume 89.5 FL (87-102); Mean Platelet Volume 10.5 FL (9.6-12.0); Monocytes # 0.5 10*3/uL (0.11-0.8); Monocytes % 7.6 % (1.7-12.7); Neutrophils # 4.7 10*3/uL (1.4-7.4); Neutrophils % 70.1 % (38.7-73.9); Platelet Count 294 T/CUMM (130-400); Red Blood Count 3.43 MC/CUMM (3.8-5.5); Red Cell Distribution Width 14.7 % (9.3-17.3); White Blood Count 6.6 T/CUMM (4-12)
[2016-08-18 07:12] LABS: Calcium 9.3 MG/DL (8.5-10.1); Osmolality,Calculated 297.8 MOS/KG (273-304); Potassium 3.9 MMOL/L (3.5-5.1)
[2016-08-18 07:16] LABS: Hypochromasia 1+; Lymphocytes 25 % (20-55); Platelet Estimate Adequate; Segmented Neutrophils 68 % (50-85); Total Cells Counted 100
[2016-08-18] MEDS: INSULIN REGULAR 100 UNIT/ML SUBCUT SCH ×4 (09:10→20:29)
[2016-08-18] MEDS: PANTOPRAZOLE 40 MG TABLET PO SCH (09:11)
[2016-08-18] MEDS: LEVOTHYROXINE 125 MCG TABLET PO SCH (09:11)
[2016-08-18] MEDS: SUCRALFATE 1 GM TABLET PO SCH ×2 (09:11→16:50)
[2016-08-18] MEDS ORDERED: DEXTROSE 50% 25 GM/50 ML VIAL IV PRN (09:35)
--- NOTE | 2016-08-18 11:15 | Hospitalist Progress Note ---
<Bobby Wilkes - Last Filed: 08/18/16 11:10> Assessment and Plan (1) Abdominal distention Status: Acute Assessment and plan: CT revealed 'no maeve mechanical obstruction: Slightly more distended and small bowel'. 08/17 Abdomen still slightly distended. Pt. is reporting loose stools. No tenderness noted. Current Visit: Yes (2) Acute on chronic renal failure Status: Acute Assessment and plan: Consult nephrology to follow patient. BUN/creatinine has increased to 71/3.1 today from 33 on 06/02/16. 08/17 Nephrology is following patient. Bun/creatinine has decreased slightly 68/ 2.50 Current Visit: Yes (3) Debility Status: Acute Assessment and plan: Consult PT to eval/treat Current Visit: Yes (4) Dehydration Status: Acute Assessment and plan: Gentle hydration. Recheck labs in a.m. 08/17 Pt. tolerating fluids well. Continue to hydrate. Nephrology noted. Current Visit: Yes (5) Diarrhea Status: Acute Assessment and plan: Clear liquid diet. Gentle hydration. Current Visit: Yes (6) Hyperkalemia Status: Acute Assessment and plan: Potassium is 5.7. Cardiac monitoring of patient. Recheck labs in a.m. 08/17 Pt. is 4.6 today. Current Visit: Yes (7) Hypoglycemia Status: Acute Assessment and plan: Accu-Cheks before meals at bedtime. Hold medications for now. 08/17 Blood sugars have increased. Pt. was 95 this am. Continue accuchecks. Current Visit: Yes (8) Altered level of consciousness Status: Acute Assessment and plan: Pt. has dementia. Pt does also have elevated white counts so further labs will be obtained. 08/17 ammonia level was normal. WBC have decreased. Pt. is more alert and oriented this morning. Current Visit: No Exam - Constitutional Vitals: Period Temp Pulse Resp BP Sys/Garduno Pulse Ox Last 24 Hr 97.2 F-98.7 F 18-106 16-20 95-126/43-63 98-100 Results - Labs CBC & BMP: 08/18/16 05:04 08/18/16 05:04 Quality Measures - Stroke Symptom Onset Unknown: No <Monica Xiong - Last Filed: 08/18/16 12:01> Hospitalist: Subjective Interval history: We will get speech therapy to evaluate patient more so that her blood glucose dropped.We will also put some heel boots on patient in order to prevent pressure sores. Exam - Constitutional Vitals: Period Temp Pulse Resp BP Sys/Garduno Pulse Ox Last 24 Hr 97.2 F-98.7 F 18-99 16-20 95-126/43-63 98-100 Results - Labs CBC & BMP: 08/18/16 05:04 08/18/16 05:04
--- NOTE | 2016-08-18 14:15 | Nephrology Progress Note ---
Nephrology - PN: Subj Interval history: Ms. Roque is seen in follow-up of her acute renal impairment. She is much improved now with a creatinine of 1.8 and her acidosis is improved with a measured bicarb of 19. She is better hydrated but far from where it at this point and her p.o. intake is marginal so we will continue with her IV fluids which contain sodium acetate for metabolic acidosis. Abdomen is soft bowel sounds are present. Exam (PN)-Nephrology - Vital Signs Vital signs: Period Temp Pulse Resp BP Sys/Garduno Pulse Ox Last 24 Hr 97.2 F-98.7 F 18-99 16-20 95-126/43-63 98-100 - Lab 08/18/16 05:04 08/18/16 05:04 Most recent lab results Calcium 9.3 MG/DL (8.5-10.1) 08/18/16 05:04 Magnesium 2.2 MG/DL (1.8-2.4) 08/17/16 05:46 Assessment and Plan (1) Acute renal failure Status: Acute Assessment and plan: due to volume depletion. Hold Lisinopril and increase fluid. Give bicarb which should be sufficient to correct hyperkalemia Current Visit: No
[2016-08-18] MEDS: ENOXAPARIN 30 MG/0.3 ML SYRINGE SUBCUT SCH (16:49)
[2016-08-18] MEDS: DONEPEZIL 10 MG TABLET PO SCH (20:27)
[2016-08-19] MEDS: SODIUM ACETATE 50 MEQ in SODIUM CHLORIDE 0.45% 1,000 ML IV SCH ×3 (03:02→17:39)
[2016-08-19] MEDS: SUCRALFATE 1 GM TABLET PO SCH ×2 (07:37→17:18)
--- NOTE | 2016-08-19 08:35 | Nephrology Progress Note ---
Nephrology - PN: Subj Interval history: Ms. Roque is seen in follow-up of her acute renal failure. She is clinically much better. She is more animated and conversant. She appears better hydrated. Lab has been ordered and is pending. Will make adjustments in her fluids if and as needed Exam (PN)-Nephrology - Vital Signs Vital signs: Period Temp Pulse Resp BP Sys/Garduno Pulse Ox Last 24 Hr 97.2 F-98.1 F 18-92 18-20 97-126/41-57 94-100 - Lab 08/18/16 05:04 08/18/16 05:04 Most recent lab results Calcium 9.3 MG/DL (8.5-10.1) 08/18/16 05:04 Magnesium 2.2 MG/DL (1.8-2.4) 08/17/16 05:46 Assessment and Plan (1) Acute renal failure Status: Acute Assessment and plan: due to volume depletion. Hold Lisinopril and increase fluid. Give bicarb which should be sufficient to correct hyperkalemia Current Visit: No
[2016-08-19] MEDS: INSULIN REGULAR 100 UNIT/ML SUBCUT SCH ×4 (09:24→20:41)
[2016-08-19] MEDS: ACETAMINOPHEN 325 MG TABLET PO PRN ×2 (09:37→17:18)
[2016-08-19] MEDS: LEVOTHYROXINE 125 MCG TABLET PO SCH (09:38)
[2016-08-19] MEDS: PANTOPRAZOLE 40 MG TABLET PO SCH (09:38)
[2016-08-19 10:04] LABS: Calcium 8.2 MG/DL (8.5-10.1); Osmolality,Calculated 293.1 MOS/KG (273-304); Potassium 3.8 MMOL/L (3.5-5.1)
--- NOTE | 2016-08-19 11:58 | Hospitalist Progress Note ---
<Bobby Wilkes - Last Filed: 08/19/16 12:50> Assessment and Plan (1) Abdominal distention Status: Acute Assessment and plan: CT revealed 'no maeve mechanical obstruction: Slightly more distended and small bowel'. 08/17 Abdomen still slightly distended. Pt. is reporting loose stools. No tenderness noted. 08/18 More formed stools noted 08/19 Pt. stomach has improved. More formed stools. Current Visit: Yes (2) Acute on chronic renal failure Status: Acute Assessment and plan: Consult nephrology to follow patient. BUN/creatinine has increased to 71/3.1 today from 33 on 06/02/16. 08/17 Nephrology is following patient. Bun/creatinine has decreased slightly 68/ 2.50 08/18 Nephrology following 08/19 renal function improved. nephrology following Current Visit: Yes (3) Debility Status: Acute Assessment and plan: Consult PT to eval/treat Current Visit: Yes (4) Dehydration Status: Acute Assessment and plan: Gentle hydration. Recheck labs in a.m. 08/17 Pt. tolerating fluids well. Continue to hydrate. Nephrology noted. Current Visit: Yes (5) Diarrhea Status: Acute Assessment and plan: Pt is having formed stools. Still being hydrated with IVF. Current Visit: Yes (6) Hyperkalemia Status: Acute Assessment and plan: Potassium is 5.7. Cardiac monitoring of patient. Recheck labs in a.m. 08/17 Pt. is 4.6 today. 08/19 K stable Current Visit: Yes (7) Hypoglycemia Status: Acute Assessment and plan: Accu-Cheks before meals at bedtime. Hold medications for now. 08/17 Blood sugars have increased. Pt. was 95 this am. Continue accuchecks. 08/19 Pt. stable Current Visit: Yes (8) Altered level of consciousness Status: Acute Assessment and plan: Pt. has dementia. Pt does also have elevated white counts so further labs will be obtained. 08/17 ammonia level was normal. WBC have decreased. Pt. is more alert and oriented this morning. 08/18 Pt. is more alert. 08/19 Pt. is alert and oriented. No issues noted. Current Visit: No Hospitalist: Subjective Interval history: Pt seen and examined this am. Labs and reviewed. Pt is alert and oriented. Pt. looks much better today but pt states that she feels sick to her stomach but has no other complaints. RN made aware; medication ordered for patient. Will continue to monitor. Nephrology still following. Exam - Constitutional Vitals: Period Temp Pulse Resp BP Sys/Garduno Pulse Ox Last 24 Hr 97.6 F-98.1 F 66-92 18-20 97-112/41-63 94-100 General appearance: normal weight, no acute distress - Head Head exam: Present: normal inspection, normocephalic - Eye Eye exam: Present: EOMI. Absent: scleral icterus Pupils: Present: SAADIA. Absent: dilated - Neck Neck exam: Present: normal inspection. Absent: thyromegaly - Respiratory Respiratory exam: Present: clear to auscultation bilaterally. Absent: wheezes - Cardiovascular Cardiovascular exam: Present: regular rate and rhythm. Absent: irregular rhythm - GI/Abdominal GI/Abdominal exam: Present: normal bowel sounds, soft, other (pt. complains of being "sick on stomach"). Absent: tenderness - Extremities Exam Extremities exam: Present: normal capillary refill, full ROM. Absent: edema - Neurological Exam Neurological exam: Present: alert, oriented X3 - Psychiatric Psychiatric exam: Present: normal affect, normal mood, depressed - Skin Skin exam: Present: normal color, warm, dry Results - Labs CBC & BMP: 08/18/16 05:04 08/19/16 09:16 Lab Results: I have reviewed the past 24 hour labs Quality Measures - Stroke Symptom Onset Unknown: No <Cinda Soto - Last Filed: 08/19/16 18:26> Hospitalist: Subjective Interval history: Patient seen and examined independently of RESEARCH LABORATORY TECHNICIAN Wilkes, agree with assessment and plan as documented. Complaining of left heel pain. Exam - Constitutional Vitals: Period Temp Pulse Resp BP Sys/Garduno Pulse Ox Last 24 Hr 97.6 F-98.1 F 66-84 18-20 97-112/41-63 94-100 Results - Labs CBC & BMP: 08/18/16 05:04 08/19/16 09:16
--- NOTE | 2016-08-19 14:49 | Case Mgmt Physician Query Form ---
TB Signs and Symptoms Screening ([place]) INSTRUCTIONS: To be completed annually on residents/staff with a significant Tuberculin Skin Test (TST) upon admission/hire or a prior significant TST. To be completed on all staff at hire. Please respond to each listed symptom with an (X) in either the "YES" or "NO" box. Do you currently have any of the following symptoms: YES NO ( ) (x ) A cough If yes, is it: ( ) Productive ( ) Non- productive ( ) (x ) Hemoptysis (spitting up blood) ( ) (x ) Chest pains ( ) (x ) Weight Loss ( ) (x ) Fever ( ) (x ) Night Sweats ( ) (x ) Weakness ( ) (x ) Loss of Appetite ( ) (x ) Difficulty Breathing If you answered YES" to any of the above questions, how long have symptoms been present? Comments: If you have any questions, please contact me . Thank you, Mesha MONTALVO Email: [email or web address] [facility]
[2016-08-19] MEDS ORDERED: TUBERCULIN SKIN TEST 0.1 ML SYRINGE INTRADERM ONE (16:30)
[2016-08-19] MEDS ORDERED: oxyCODONE IR 5 MG TABLET PO PRN (17:04)
[2016-08-19] MEDS: ENOXAPARIN 30 MG/0.3 ML SYRINGE SUBCUT SCH (17:18)
[2016-08-19] MEDS: DONEPEZIL 10 MG TABLET PO SCH (20:41)
[2016-08-20] MEDS: SODIUM ACETATE 50 MEQ in SODIUM CHLORIDE 0.45% 1,000 ML IV SCH (04:40)
[2016-08-20 06:00] LABS: Calcium 8.6 MG/DL (8.5-10.1); Osmolality,Calculated 284.3 MOS/KG (273-304); Potassium 4.2 MMOL/L (3.5-5.1)
[2016-08-20] MEDS: INSULIN REGULAR 100 UNIT/ML SUBCUT SCH ×2 (08:35→11:47)
[2016-08-20] MEDS: LEVOTHYROXINE 125 MCG TABLET PO SCH (08:36)
[2016-08-20] MEDS: PANTOPRAZOLE 40 MG TABLET PO SCH (08:36)
[2016-08-20] MEDS: SUCRALFATE 1 GM TABLET PO SCH (08:36)
--- NOTE | 2016-08-20 09:52 | Nephrology Progress Note ---
Nephrology - PN: Subj Interval history: Ms. Roque is seen in follow-up of her acute renal failure. This is now resolved her creatinine is down to 0.9 and her metabolic acidosis is corrected with a measured bicarb of 24. We can slow her IV to 50 cc an hour and we will we will remove the sodium acetate from it. She is alert says she is eating and drinking fairly well. We will sign off please reconsult if we can help thank Exam (PN)-Nephrology - Vital Signs Vital signs: Period Temp Pulse Resp BP Sys/Garduno Pulse Ox Last 24 Hr 96.8 F-97.8 F 81-88 - 108-130/53-72 100-100 - Lab 08/18/16 05:04 08/20/16 05:12 Most recent lab results Calcium 8.6 MG/DL (8.5-10.1) 08/20/16 05:12 Magnesium 2.2 MG/DL (1.8-2.4) 08/17/16 05:46 Assessment and Plan (1) Acute renal failure Status: Acute Assessment and plan: due to volume depletion. Hold Lisinopril and increase fluid. Give bicarb which should be sufficient to correct hyperkalemia Current Visit: No
[2016-08-20] MEDS ORDERED: SODIUM CHLORIDE 0.45% 1,000 ML IV SCH (10:00)
--- NOTE | 2016-08-20 11:28 | Discharge Summary ---
<[place] - Last Filed: 08/20/16 10:59> Hospital Course - Hospital Course Hospital Course: Ms. Houston is a 81-year-old -[place] female with a history of CHF, hypertension, myocardial infarction, atrial fibrillation, diabetes mellitus, thyroid disorder, dementia, GERD and anemia who presented to the emergency room on 08/16/2016 for further evaluation of weakness, fatigue and diarrhea. Patient was recently released from a 20 day rehab facility in [place]. She was admitted with abdominal distention, acute on chronic renal failure, debility, dehydration , diarrhea, electrolyte imbalances, hypoglycemia and altered level of consciousness. On exam, the patient was only oriented to self. CT of abdomen and pelvis revealed no maeve mechanical bowel obstruction although the colon was slightly more distended than the small bowel, and there was also a large amount of fluid present in the colon. Patient's BUN was noted to be 71 and creatinine 3.1. Head CT on admission revealed no acute intracranial hemorrhage or vascular territory infarction. Nephrology was consulted to assist with renal failure. Patient's BUN and creatinine was noted to decrease with IV hydration . She was continued on IV fluids with sodium acetate with a metabolic acidosis as well as sodium bicarb. At time of discharge, her electrolytes have normalized in her acute renal failure has resolved (down to 22 and 0.90) with correction of metabolic acidosis. Bicarb is now measuring 24. The remainder of her hospitalization was relatively uncomplicated. She has reached maximum benefit from hospitalization and stable for discharge to swing bed for continuation of care at this time. Discharge Plan - Discharge Data Disposition: Disch/Xfer-Ip Rehab Fac - Discharge Medications New oxyCODONE IR [Roxicodone] 5 mg PO Q4H PRN #20 tablet PRN Reason: Pain Severe (8-10) Continue Pantoprazole Sodium 40 mg PO BID Donepezil HCl 10 mg PO BEDTIME Sucralfate 1 gm PO BIDAC Levothyroxine Tab [Synthroid Tab] 125 mcg PO DAILY Nitroglycerin Sl Tab [Nitrostat] 0.4 mg SL Q5M PRN PRN Reason: Chest Pain Apixaban [Eliquis] 1.25 mg PO BID Megestrol Acetate 200 ml PO TID W/MEALS Glimepiride [Amaryl] 4 mg PO BID Linagliptin [Tradjenta] 5 mg PO DAILY Dexlansoprazole [Dexilant] 60 mg PO DAILY Discontinued Lisinopril 5 mg PO DAILY Furosemide 20 mg PO DAILY - Follow Up or Referral - Forms/Instructions Exam - Constitutional Vitals: Period Temp Pulse Resp BP Sys/Garduno Pulse Ox Last 24 Hr 96.8 F-97.8 F 81-88 17-21 108-130/53-72 100-100 Discharge Results Procedures and tests throughout hospitalization: Pending Orders 08/16/16 15:36 Blood Culture Stat Labs on day of discharge: Labs from last 24 hours 08/20/16 08/20/16 08/19/16 07:20 05:12 19:54 Sodium 141 Potassium 4.2 Chloride 108 H Carbon Dioxide 24 Anion Gap 13.2 BUN 22 H D Creatinine 0.90 GFR Calculation 65 BUN/Creatinine Ratio 24.00 H Glucose 122 H POC Glucose 169 H 215 H Calculated Osmolality 284.3 Calcium 8.6 08/19/16 08/19/16 08/19/16 17:55 15:53 11:40 Sodium Potassium Chloride Carbon Dioxide Anion Gap BUN Creatinine GFR Calculation BUN/Creatinine Ratio Glucose POC Glucose 177 H 65 L 268 H Calculated Osmolality Calcium Preliminary micro results at discharge 08/16/16 15:36 Blood Culture - Preliminary Blood No growth at 3 days 08/16/16 15:36 Blood Culture - Preliminary Blood No growth at 3 days DS: Provider Date of admission: 08/16/16 12:00 Primary care physician: Lowell Solitario DO Attending physician on admission: Monica Xiong MD Consults: 08/16/16 15:15 Consult to Physician [CONS] Routine Comment: Consulting Provider: Rey Ortiz Consult to Specialist Group: Nephrology Person Notified: latanya Date Notified: 08/16/16 Time Notified: 15:24 08/17/16 10:05 Consult to Physical Therapy [CONS] Routine Reason for Physical Therapy: Weakness Discharging clinician: Teto PEREZ Expected date of discharge: 08/20/16 <Cinda Soto - Last Filed: 08/20/16 11:50> Hospital Course - Time spent with patient Time with patient DS: Greater than 30 minutes (40) Diagnosis - Discharge Diagnosis (1) Hypoglycemia Status: Resolved (2) Dehydration Status: Resolved (3) Acute on chronic renal failure Status: Resolved (4) Abdominal distention Status: Resolved (5) Diarrhea Status: Resolved (6) Hyperkalemia Status: Resolved Discharge Plan - Discharge Data Condition at Discharge: Stable Discharge Diet: advance to your usual diet Activity: as per physical therapy Hygiene: no restrictions Weight Bearing at Discharge: weight bear as tolerated Contact your physician if you experience:: fever over 101, Shortness of breath Exam - Constitutional General appearance: normal weight - Head Head exam: Present: normocephalic, atraumatic - Eye Eye exam: Present: EOMI Pupils: Present: SAADIA - ENT ENT exam: Present: normal exam - Neck Neck exam: Present: normal inspection - Respiratory Respiratory exam: Present: clear to auscultation bilaterally. Absent: rhonchi, wheezes - Cardiovascular Cardiovascular exam: Present: regular rate and rhythm - GI/Abdominal GI/Abdominal exam: Present: normal bowel sounds, soft. Absent: tenderness, rebound - Extremities Exam Extremities exam: Present: normal inspection - Back Exam Back exam: Present: normal inspection - Neurological Exam Neurological exam: Present: alert, oriented X3 - Psychiatric Psychiatric exam: Present: normal affect, normal mood - Skin Skin exam: Present: warm, intact
[2016-08-20 12:12] VITALS: BP 112/65
== END 2016-08-20 12:36 | DRG 683 ==
LOC: EDBD → EDUNIT# → N.ED 09:54 → N.EDINP 12:00 → SUATTDRO 12:00 → N.EDINP 13:10 → N.5E 13:47
PROVIDERS: ADMIT Internal Medicine; ATTEND Internal Medicine

== ENCOUNTER 2016-12-10 18:12 | Inpatient (IN) ==
[2016-12-10 18:57] LABS: Basophils % 0.4 % (0.0-0.8); Eosinophils # 0.1 10*3/uL (0.0-0.87); Eosinophils % 0.6 % (0.00-10.9); Hematocrit 31.5 VOL% (35.7-47.0); Hemoglobin 10.6 GM/DL (12.0-16.0); Immature Granulocytes % 1.5 %; Immature Granulocytes Absolute 0.12 #; Lymphocytes # 1.9 10*3/uL (1.4-4.0); Mean Corpuscular HGB Conc 33.7 GM/DL (32-36); Mean Corpuscular Hemoglobin 32 PG (27-34); Mean Corpuscular Volume 94.6 FL (87-102); Mean Platelet Volume 9.3 FL (9.6-12.0); Monocytes # 0.4 10*3/uL (0.11-0.8); Monocytes % 5.1 % (1.7-12.7); Neutrophils # 5.6 10*3/uL (1.4-7.4); Neutrophils % 69.4 % (38.7-73.9); Platelet Count 441 T/CUMM (130-400); Red Blood Count 3.33 MC/CUMM (3.8-5.5); Red Cell Distribution Width 15.4 % (9.3-17.3)
[2016-12-10 19:12] LABS: Alanine Aminotransferase 19 U/L (13-56); Albumin 2.4 G/DL (3.4-5.0); Alkaline Phosphatase 93 U/L (45-117); Aspartate Amino Transferase 13 U/L (0-37); Bilirubin,Total < 0.39 MG/DL (0.2-1.0); Blood Urea Nitrogen 40 MG/DL (7-18); Calcium 10.2 MG/DL (8.5-10.1); Glucose 225 MG/DL (74-106); Potassium 4.6 MMOL/L (3.5-5.1); Sodium 143 MMOL/L (136-145); Total Protein 7.3 G/DL (6.4-8.3); Troponin I Only 0.029 NG/ML (0.00-0.045)
[2016-12-10] MEDS ORDERED: ACETAMINOPHEN 325 MG TABLET PO PRN (21:19)
[2016-12-10 21:43] LABS: Anisocytosis 1+; Platelet Estimate Normal
[2016-12-10] MEDS ORDERED: METOPROLOL TARTRATE 5 MG/5 ML VIAL IV PRN (23:12)
[2016-12-10] MEDS ORDERED: ALBUTEROL/IPRATROPIUM 3 ML NEB RESP TX PRN (23:17)
[2016-12-10] MEDS: DEXTROSE 5% NACL 0.9% 1,000 ML IV SCH (23:47)
[2016-12-11] MEDS ORDERED: SODIUM CHLORIDE 0.9% 500 ML IV ONE (07:36)
[2016-12-11] MEDS ORDERED: DOCUSATE SODIUM 100 MG CAPSULE PO SCH (09:00)
[2016-12-11] MEDS ORDERED: PANTOPRAZOLE 40 MG TABLET PO SCH (09:00)
[2016-12-11] MEDS: DEXTROSE 5% NACL 0.9% 1,000 ML IV SCH ×2 (09:30→17:19)
[2016-12-11] MEDS ORDERED: GLUCAGON 1 MG VIAL IM PRN (14:34)
[2016-12-11] MEDS ORDERED: MAGNESIUM HYDROXIDE SUSP 30 ML UDCUP PO PRN (15:12)
[2016-12-11] MEDS ORDERED: BISACODYL 10 MG SUPP RECTAL PRN (15:19)
[2016-12-11] MEDS ORDERED: buPROPion SR 100 MG TABLET PO SCH (15:30)
[2016-12-11 15:54] LABS: Apearance,Urine CLOUDY (Clear); Bacteria,Urine Few /HPF (Few); Bilirubin,Urine Negative (Negative); Blood, Urine Small mg/dL (Negative); Glucose,Urine (UA) 150 mg/dL (Negative); Ketones,Urine Negative (Negative); Nitrite,Urine Negative (Negative); Protein,Urine Negative; RBC,Urine 8 /HPF (0-4); Urine Color Yellow (Yellow); Urine Urobilinogen < 2.0 EU/DL (0.2-1.0); WBC,Urine 199 /HPF (0-6)
[2016-12-11 16:27] LABS: Basophils # 0.1 10*3/uL (0.0-0.2); Basophils % 0.2 % (0.0-0.8); Hematocrit 26.8 VOL% (35.7-47.0); Hemoglobin 9.1 GM/DL (12.0-16.0); Immature Granulocytes % 1.1 %; Immature Granulocytes Absolute 0.26 #; Lymphocytes % 4.2 % (21.3-54.2); Mean Corpuscular Hemoglobin 32 PG (27-34); Mean Corpuscular Volume 94.7 FL (87-102); Mean Platelet Volume 9.2 FL (9.6-12.0); Monocytes # 0.4 10*3/uL (0.11-0.8); Monocytes % 1.6 % (1.7-12.7); Neutrophils % 92.9 % (38.7-73.9); Platelet Count 370 T/CUMM (130-400); Red Blood Count 2.83 MC/CUMM (3.8-5.5); Red Cell Distribution Width 15.2 % (9.3-17.3); White Blood Count 24.7 T/CUMM (4-12)
[2016-12-11] MEDS ORDERED: MEGESTROL 400 MG/10 ML UDCUP PO SCH (16:30)
[2016-12-11] MEDS: PANTOPRAZOLE 40 MG VIAL IV SCH (16:30)
[2016-12-11 16:50] LABS: Band Neutrophils 7 % (0-10); Giant Platelets Few; Hypochromasia 1+; Lymphocytes 2 % (20-55); Platelet Estimate Adequate; Segmented Neutrophils 90 % (50-85); Total Cells Counted 100
[2016-12-11 17:04] LABS: 25 Hydroxy Vitamin D Total 23.5 NG/ML
[2016-12-11 17:08] LABS: Albumin 2.1 G/DL (3.4-5.0); Bilirubin,Total 0.4 MG/DL (0.2-1.0); Calcium 9.2 MG/DL (8.5-10.1); Magnesium 1.3 MG/DL (1.8-2.4); Osmolality,Calculated 315.8 MOS/KG (273-304); Potassium 4.3 MMOL/L (3.5-5.1); Thyroid Stimulating Hormone 0.902 uIU/ml (0.358-3.74); Total Protein 5.8 G/DL (6.4-8.3)
[2016-12-11] MEDS: METOPROLOL TARTRATE 5 MG/5 ML VIAL IV SCH ×2 (17:20→23:57)
[2016-12-11] MEDS: INSULIN REGULAR 100 UNIT/ML SUBCUT SCH ×2 (17:20→20:18)
[2016-12-11] MEDS: ALBUTEROL/IPRATROPIUM 3 ML NEB RESP TX SCH (19:38)
[2016-12-11] MEDS ORDERED: DEXTROSE 5% 1,000 ML IV SCH (20:00)
[2016-12-11] MEDS: INSULIN GLARGINE 100 UNIT/ML SUBCUT SCH (20:17)
[2016-12-11] MEDS ORDERED: INSULIN GLARGINE 100 UNIT/ML SUBCUT SCH (21:00)
[2016-12-11] MEDS ORDERED: DONEPEZIL 10 MG TABLET PO SCH (21:00)
[2016-12-11] MEDS ORDERED: MEMANTINE 10 MG TABLET PO SCH (21:00)
[2016-12-11] MEDS ORDERED: DILTIAZEM 30 MG TABLET PO SCH (21:00)
[2016-12-11] MEDS ORDERED: INSULIN REGULAR 100 UNIT/ML IV ONE (22:21)
[2016-12-11] MEDS: CLINDAMYCIN INJ 450 MG in SODIUM CHLORIDE 0.9% 100 ML IV SCH (23:05)
[2016-12-12] MEDS: ALBUTEROL/IPRATROPIUM 3 ML NEB RESP TX SCH ×4 (00:07→20:02)
[2016-12-12] MEDS: INSULIN REGULAR 100 UNIT/ML SUBCUT SCH ×7 (01:52→21:23)
[2016-12-12] MEDS: METOPROLOL TARTRATE 5 MG/5 ML VIAL IV SCH ×6 (05:20→20:00)
[2016-12-12] MEDS: CLINDAMYCIN INJ 450 MG in SODIUM CHLORIDE 0.9% 100 ML IV SCH ×3 (06:07→23:41)
[2016-12-12] MEDS ORDERED: LEVOTHYROXINE 100 MCG VIAL IV SCH (07:00)
[2016-12-12] MEDS ORDERED: SODIUM CHLORIDE 0.45% 1,000 ML IV SCH (07:30)
[2016-12-12] MEDS: DEXTROSE 50% 25 GM/50 ML VIAL IV PRN ×2 (07:39→14:45)
[2016-12-12] MEDS: LEVOTHYROXINE 125 MCG TABLET PO SCH (07:41)
[2016-12-12] MEDS: PANTOPRAZOLE 40 MG VIAL IV SCH ×2 (07:46→08:03)
[2016-12-12 08:04] LABS: Basophils % 0.2 % (0.0-0.8); Eosinophils # 0.1 10*3/uL (0.0-0.87); Eosinophils % 0.2 % (0.00-10.9); Hematocrit 25.3 VOL% (35.7-47.0); Hemoglobin 8.5 GM/DL (12.0-16.0); Immature Granulocytes Absolute 0.22 #; Lymphocytes # 2.6 10*3/uL (1.4-4.0); Mean Corpuscular HGB Conc 33.6 GM/DL (32-36); Mean Corpuscular Hemoglobin 31 PG (27-34); Mean Corpuscular Volume 92.7 FL (87-102); Mean Platelet Volume 9.2 FL (9.6-12.0); Monocytes # 0.5 10*3/uL (0.11-0.8); Monocytes % 2.1 % (1.7-12.7); Neutrophils # 18.5 10*3/uL (1.4-7.4); Neutrophils % 84.5 % (38.7-73.9); Platelet Count 363 T/CUMM (130-400); Red Blood Count 2.73 MC/CUMM (3.8-5.5); Red Cell Distribution Width 15.1 % (9.3-17.3); White Blood Count 21.9 T/CUMM (4-12)
[2016-12-12 08:29] LABS: Band Neutrophils 3 % (0-10); Eosinophils 2 % (0-10); Lymphocytes 9 % (20-55); Segmented Neutrophils 85 % (50-85); Total Cells Counted 100
[2016-12-12 08:30] LABS: Giant Platelets Few; Hypochromasia 1+; Platelet Estimate Adequate
[2016-12-12] MEDS ORDERED: DEXTROSE 5% NACL 0.22% 1,000 ML IV SCH (08:30)
[2016-12-12 08:31] LABS: Ovalocytes Slight
[2016-12-12 08:34] LABS: Alanine Aminotransferase 17 U/L (13-56); Alkaline Phosphatase 87 U/L (45-117); Aspartate Amino Transferase 18 U/L (0-37); Bilirubin,Total < 0.39 MG/DL (0.2-1.0); Blood Urea Nitrogen 29 MG/DL (7-18); Calcium 9.2 MG/DL (8.5-10.1); Cholesterol 136 MG/DL (50-200); HDL Cholesterol 67 MG/DL (40-60); Osmolality,Calculated 290.6 MOS/KG (273-304); Potassium 3.2 MMOL/L (3.5-5.1); Risk Ratio 2.03; Sodium 146 MMOL/L (136-145); Total Protein 5.7 G/DL (6.4-8.3); Triglycerides 73 MG/DL (2-150); VLDL CHOLESTEROL 14.6 MG/DL
[2016-12-12 08:46] LABS: Glucose 17 MG/DL (74-106)
[2016-12-12] MEDS: DEXTROSE 5% NACL 0.45% 1,000 ML IV SCH ×2 (09:48→20:00)
[2016-12-12] MEDS ORDERED: DILTIAZEM 100 MG VIAL.ADD IV ONE (12:38)
[2016-12-12] MEDS ORDERED: DILTIAZEM 50 MG/10 ML VIAL IV ONE ×3 (12:38→14:24)
[2016-12-12] MEDS ORDERED: SODIUM CHLORIDE 0.9% 100 ML IV ONE (15:23)
[2016-12-12] MEDS: DILTIAZEM INJ 100 MG in SODIUM CHLORIDE 0.9% 100 ML IV SCH (15:36)
[2016-12-12] MEDS: CARVEDILOL 3.125 MG TABLET PO SCH (21:23)
[2016-12-12] MEDS: INSULIN GLARGINE 100 UNIT/ML SUBCUT SCH (21:24)
[2016-12-12 22:23] LABS: Troponin I Only 0.968 NG/ML (0.00-0.045)
[2016-12-13] MEDS: ALBUTEROL/IPRATROPIUM 3 ML NEB RESP TX SCH ×4 (00:08→20:19)
[2016-12-13] MEDS: METOPROLOL TARTRATE 5 MG/5 ML VIAL IV SCH ×3 (01:07→11:38)
[2016-12-13] MEDS: ONDANSETRON 4 MG/2 ML VIAL IV PRN ×2 (01:40→21:56)
[2016-12-13] MEDS: DEXTROSE 5% NACL 0.45% 1,000 ML IV SCH ×4 (05:19→19:01)
[2016-12-13 05:24] LABS: Basophils % 0.1 % (0.0-0.8); Eosinophils % 0.1 % (0.00-10.9); Hematocrit 21.2 VOL% (35.7-47.0); Hemoglobin 7.3 GM/DL (12.0-16.0); Immature Granulocytes % 1.4 %; Immature Granulocytes Absolute 0.23 #; Lymphocytes # 1.2 10*3/uL (1.4-4.0); Lymphocytes % 7.2 % (21.3-54.2); Mean Corpuscular HGB Conc 34.4 GM/DL (32-36); Mean Corpuscular Hemoglobin 31 PG (27-34); Mean Platelet Volume 9.9 FL (9.6-12.0); Monocytes # 0.4 10*3/uL (0.11-0.8); Monocytes % 2.5 % (1.7-12.7); Neutrophils # 14.4 10*3/uL (1.4-7.4); Neutrophils % 88.7 % (38.7-73.9); Platelet Count 316 T/CUMM (130-400); Red Blood Count 2.33 MC/CUMM (3.8-5.5); White Blood Count 16.2 T/CUMM (4-12)
[2016-12-13 05:44] LABS: Giant Platelets Few; Hypochromasia 1+; Microcytosis Slight; Platelet Estimate Adequate
[2016-12-13 05:51] LABS: Albumin 1.7 G/DL (3.4-5.0); Bilirubin,Total 0.4 MG/DL (0.2-1.0); Calcium 8.3 MG/DL (8.5-10.1); Osmolality,Calculated 291.1 MOS/KG (273-304); Potassium 3.4 MMOL/L (3.5-5.1)
[2016-12-13] MEDS: DILTIAZEM INJ 100 MG in SODIUM CHLORIDE 0.9% 100 ML IV SCH (06:16)
[2016-12-13] MEDS: CLINDAMYCIN INJ 450 MG in SODIUM CHLORIDE 0.9% 100 ML IV SCH ×3 (06:38→23:02)
[2016-12-13] MEDS ORDERED: SODIUM CHLORIDE 0.9% 250 ML IV PRN (08:15)
[2016-12-13] MEDS ORDERED: POTASSIUM CHLORIDE 20 MEQ TABLET PO ONE (08:16)
[2016-12-13] MEDS: LEVOTHYROXINE 125 MCG TABLET PO SCH (09:31)
[2016-12-13] MEDS: INSULIN REGULAR 100 UNIT/ML SUBCUT SCH ×4 (09:31→21:48)
[2016-12-13] MEDS: CARVEDILOL 3.125 MG TABLET PO SCH ×2 (09:31→21:47)
[2016-12-13] MEDS: PANTOPRAZOLE 40 MG VIAL IV SCH (09:32)
[2016-12-13] MEDS ORDERED: DILTIAZEM 60 MG TABLET PO SCH (12:30)
[2016-12-13] MEDS: DEXTROSE 50% 25 GM/50 ML VIAL IV PRN (17:02)
[2016-12-13] MEDS ORDERED: DIGOXIN 0.5 MG/2 ML AMP IV ONE (17:24)
[2016-12-13] MEDS ORDERED: DILTIAZEM 50 MG/10 ML VIAL IV ONE (17:25)
[2016-12-13] MEDS ORDERED: AMPICILLIN INJ 2,000 MG in SODIUM CHLORIDE 0.9% 50 ML IV ONE (17:32)
[2016-12-13] MEDS: AMPICILLIN INJ 1,000 MG in SODIUM CHLORIDE 0.9% 50 ML IV SCH ×2 (18:14→18:53)
[2016-12-13] MEDS ORDERED: DILTIAZEM 100 MG VIAL.ADD IV ONE (18:30)
[2016-12-13] MEDS ORDERED: DILTIAZEM INJ 100 MG in SODIUM CHLORIDE 0.9% 100 ML IV SCH (18:30)
[2016-12-13 20:03] LABS: Hematocrit 29.8 VOL% (35.7-47.0)
[2016-12-13 20:04] LABS: Hemoglobin 10.4 GM/DL (12.0-16.0)
[2016-12-13] MEDS ORDERED: DIGOXIN 0.25 MG TABLET PO ONE (20:09)
[2016-12-13] MEDS: ATORVASTATIN 20 MG TABLET PO SCH (21:47)
[2016-12-13] MEDS: INSULIN GLARGINE 100 UNIT/ML SUBCUT SCH (21:48)
[2016-12-14] MEDS: ALBUTEROL/IPRATROPIUM 3 ML NEB RESP TX SCH ×4 (02:04→20:37)
[2016-12-14] MEDS: AMPICILLIN INJ 1,000 MG in SODIUM CHLORIDE 0.9% 50 ML IV SCH ×3 (02:45→17:06)
[2016-12-14] MEDS: DEXTROSE 5% NACL 0.45% 1,000 ML IV SCH ×2 (02:46→13:23)
[2016-12-14 06:03] LABS: Basophils % 0.3 % (0.0-0.8); Eosinophils # 0.1 10*3/uL (0.0-0.87); Eosinophils % 0.5 % (0.00-10.9); Hematocrit 31.9 VOL% (35.7-47.0); Hemoglobin 11.6 GM/DL (12.0-16.0); Immature Granulocytes % 1.9 %; Immature Granulocytes Absolute 0.25 #; Lymphocytes # 1.4 10*3/uL (1.4-4.0); Lymphocytes % 10.3 % (21.3-54.2); Mean Corpuscular HGB Conc 36.4 GM/DL (32-36); Mean Corpuscular Hemoglobin 31 PG (27-34); Mean Corpuscular Volume 86.4 FL (87-102); Mean Platelet Volume 10.1 FL (9.6-12.0); Monocytes # 0.5 10*3/uL (0.11-0.8); Monocytes % 3.6 % (1.7-12.7); NRBC # 0.03 10*3/uL; Neutrophils # 11.2 10*3/uL (1.4-7.4); Neutrophils % 83.4 % (38.7-73.9); Platelet Count 254 T/CUMM (130-400); Red Blood Count 3.69 MC/CUMM (3.8-5.5); Red Cell Distribution Width 15.1 % (9.3-17.3); White Blood Count 13.4 T/CUMM (4-12)
[2016-12-14] MEDS: CLINDAMYCIN INJ 450 MG in SODIUM CHLORIDE 0.9% 100 ML IV SCH ×3 (06:03→22:37)
[2016-12-14] MEDS: LEVOTHYROXINE 125 MCG TABLET PO SCH (06:03)
[2016-12-14 06:08] LABS: Band Neutrophils 1 % (0-10); Eosinophils 1 % (0-10); Lymphocytes 14 % (20-55); Segmented Neutrophils 84 % (50-85); Total Cells Counted 100
[2016-12-14 06:09] LABS: Burr Cells Slight; Giant Platelets Few; Hypochromasia Slight; Microcytosis Slight; Platelet Estimate Adequate; Target Cells Few
[2016-12-14 06:11] LABS: Blood Urea Nitrogen 19 MG/DL (7-18); Calcium 8.2 MG/DL (8.5-10.1); Glucose 134 MG/DL (74-106); Magnesium < 0.3 MG/DL (1.8-2.4); Osmolality,Calculated 282.4 MOS/KG (273-304); Potassium 4.2 MMOL/L (3.5-5.1); Sodium 140 MMOL/L (136-145)
[2016-12-14] MEDS: INSULIN REGULAR 100 UNIT/ML SUBCUT SCH ×4 (08:23→21:12)
[2016-12-14] MEDS: ATORVASTATIN 20 MG TABLET PO SCH (09:36)
[2016-12-14] MEDS: PANTOPRAZOLE 40 MG VIAL IV SCH (09:36)
[2016-12-14] MEDS: CARVEDILOL 12.5 MG TABLET PO SCH ×2 (09:45→21:11)
[2016-12-14] MEDS: DIGOXIN 0.25 MG TABLET PO SCH (13:20)
[2016-12-14] MEDS ORDERED: FUROSEMIDE 20 MG/2 ML VIAL IV ONE (15:19)
[2016-12-14] MEDS ORDERED: MAGNESIUM SULF RIDER 4 GM in PREMIX 1 EACH IV PRN ×2 (16:22→16:24)
[2016-12-14] MEDS ORDERED: MAGNESIUM SULF RIDER 2 GM in PREMIX 1 EACH IV PRN ×2 (16:22→16:24)
[2016-12-14] MEDS: INSULIN GLARGINE 100 UNIT/ML SUBCUT SCH (21:12)
[2016-12-15] MEDS: ALBUTEROL/IPRATROPIUM 3 ML NEB RESP TX SCH ×4 (01:30→19:38)
[2016-12-15] MEDS: AMPICILLIN INJ 1,000 MG in SODIUM CHLORIDE 0.9% 50 ML IV SCH ×3 (01:59→18:49)
[2016-12-15] MEDS: CLINDAMYCIN INJ 450 MG in SODIUM CHLORIDE 0.9% 100 ML IV SCH ×2 (06:03→16:18)
[2016-12-15] MEDS: LEVOTHYROXINE 125 MCG TABLET PO SCH (06:04)
[2016-12-15 06:12] LABS: Basophils % 0.1 % (0.0-0.8); Hematocrit 29.2 VOL% (35.7-47.0); Hemoglobin 10.6 GM/DL (12.0-16.0); Immature Granulocytes % 0.9 %; Immature Granulocytes Absolute 0.15 #; Lymphocytes # 0.7 10*3/uL (1.4-4.0); Lymphocytes % 4.5 % (21.3-54.2); Mean Corpuscular HGB Conc 36.3 GM/DL (32-36); Mean Corpuscular Hemoglobin 31 PG (27-34); Mean Corpuscular Volume 85.9 FL (87-102); Mean Platelet Volume 9.7 FL (9.6-12.0); Monocytes # 0.6 10*3/uL (0.11-0.8); Neutrophils # 14.4 10*3/uL (1.4-7.4); Neutrophils % 90.5 % (38.7-73.9); Platelet Count 293 T/CUMM (130-400); Red Cell Distribution Width 14.6 % (9.3-17.3); White Blood Count 15.9 T/CUMM (4-12)
[2016-12-15 06:38] LABS: Calcium 8.7 MG/DL (8.5-10.1); Magnesium 2.1 MG/DL (1.8-2.4); Osmolality,Calculated 290.8 MOS/KG (273-304); Potassium 3.5 MMOL/L (3.5-5.1)
[2016-12-15 06:39] LABS: Band Neutrophils 7 % (0-10); Burr Cells Slight; Lymphocytes 1 % (20-55); Platelet Estimate Adequate; Polychromasia Slight; Segmented Neutrophils 91 % (50-85); Target Cells Slight; Total Cells Counted 100
[2016-12-15] MEDS: ATORVASTATIN 20 MG TABLET PO SCH (09:17)
[2016-12-15] MEDS: PANTOPRAZOLE 40 MG VIAL IV SCH (09:17)
[2016-12-15] MEDS: CARVEDILOL 12.5 MG TABLET PO SCH (09:17)
[2016-12-15] MEDS: INSULIN REGULAR 100 UNIT/ML SUBCUT SCH ×4 (11:25→21:33)
[2016-12-15] MEDS: DIGOXIN 0.25 MG TABLET PO SCH (14:29)
[2016-12-15] MEDS ORDERED: POTASSIUM CHLORIDE 20 MEQ TABLET PO PRN (14:33)
[2016-12-15] MEDS: CARVEDILOL 25 MG TABLET PO SCH (21:32)
[2016-12-15] MEDS: INSULIN GLARGINE 100 UNIT/ML SUBCUT SCH (21:33)
[2016-12-16] MEDS: ALBUTEROL/IPRATROPIUM 3 ML NEB RESP TX SCH ×4 (00:10→18:55)
[2016-12-16] MEDS: CLINDAMYCIN INJ 450 MG in SODIUM CHLORIDE 0.9% 100 ML IV SCH ×3 (01:08→17:12)
[2016-12-16] MEDS: AMPICILLIN INJ 1,000 MG in SODIUM CHLORIDE 0.9% 50 ML IV SCH ×3 (03:28→18:33)
[2016-12-16 05:53] LABS: Basophils % 0.2 % (0.0-0.8); Eosinophils % 0.3 % (0.00-10.9); Hematocrit 28.3 VOL% (35.7-47.0); Hemoglobin 9.9 GM/DL (12.0-16.0); Immature Granulocytes % 1.5 %; Immature Granulocytes Absolute 0.15 #; Lymphocytes # 1.1 10*3/uL (1.4-4.0); Lymphocytes % 10.4 % (21.3-54.2); Mean Corpuscular Hemoglobin 30 PG (27-34); Mean Corpuscular Volume 86.5 FL (87-102); Mean Platelet Volume 9.7 FL (9.6-12.0); Monocytes # 0.5 10*3/uL (0.11-0.8); Monocytes % 5.3 % (1.7-12.7); Neutrophils # 8.5 10*3/uL (1.4-7.4); Neutrophils % 82.3 % (38.7-73.9); Platelet Count 287 T/CUMM (130-400); Red Blood Count 3.27 MC/CUMM (3.8-5.5); Red Cell Distribution Width 14.4 % (9.3-17.3); White Blood Count 10.3 T/CUMM (4-12)
[2016-12-16 06:27] LABS: Calcium 8.4 MG/DL (8.5-10.1); Magnesium 2.2 MG/DL (1.8-2.4); Osmolality,Calculated 296.6 MOS/KG (273-304); Potassium 3.5 MMOL/L (3.5-5.1)
[2016-12-16] MEDS: LEVOTHYROXINE 125 MCG TABLET PO SCH (06:49)
[2016-12-16 07:07] LABS: Hypochromasia 2+; Lymphocytes 14 % (20-55); Metamyelocytes 1 %; Nucleated Red Blood Cells 1 (0-5); Platelet Estimate Normal; Segmented Neutrophils 82 % (50-85); Total Cells Counted 100
[2016-12-16] MEDS ORDERED: LISINOPRIL 2.5 MG TABLET PO SCH (09:00)
[2016-12-16] MEDS: INSULIN REGULAR 100 UNIT/ML SUBCUT SCH ×4 (09:09→21:39)
[2016-12-16] MEDS: PANTOPRAZOLE 40 MG VIAL IV SCH (09:10)
[2016-12-16] MEDS: ATORVASTATIN 20 MG TABLET PO SCH (09:11)
[2016-12-16] MEDS: CARVEDILOL 25 MG TABLET PO SCH ×2 (09:11→20:54)
[2016-12-16] MEDS ORDERED: LISINOPRIL 5 MG TABLET PO SCH (12:03)
[2016-12-16] MEDS: DIGOXIN 0.25 MG TABLET PO SCH (15:21)
[2016-12-16] MEDS: DEXTROSE 50% 25 GM/50 ML VIAL IV PRN (15:46)
[2016-12-16] MEDS: POTASSIUM CHLORIDE 20 MEQ TABLET PO SCH (20:54)
[2016-12-16] MEDS: INSULIN GLARGINE 100 UNIT/ML SUBCUT SCH (20:55)
[2016-12-17] MEDS: CLINDAMYCIN INJ 450 MG in SODIUM CHLORIDE 0.9% 100 ML IV SCH ×4 (00:20→23:23)
[2016-12-17] MEDS: ALBUTEROL/IPRATROPIUM 3 ML NEB RESP TX SCH ×4 (00:41→20:36)
[2016-12-17] MEDS: AMPICILLIN INJ 1,000 MG in SODIUM CHLORIDE 0.9% 50 ML IV SCH ×3 (03:12→17:00)
[2016-12-17 05:41] LABS: Basophils % 0.1 % (0.0-0.8); Eosinophils # 0.1 10*3/uL (0.0-0.87); Eosinophils % 1.5 % (0.00-10.9); Hematocrit 28.8 VOL% (35.7-47.0); Hemoglobin 10.2 GM/DL (12.0-16.0); Immature Granulocytes % 2.9 %; Lymphocytes # 1.1 10*3/uL (1.4-4.0); Lymphocytes % 15.9 % (21.3-54.2); Mean Corpuscular HGB Conc 35.4 GM/DL (32-36); Mean Corpuscular Hemoglobin 31 PG (27-34); Mean Corpuscular Volume 87.5 FL (87-102); Mean Platelet Volume 9.9 FL (9.6-12.0); Monocytes # 0.4 10*3/uL (0.11-0.8); Monocytes % 5.3 % (1.7-12.7); Neutrophils # 5.1 10*3/uL (1.4-7.4); Neutrophils % 74.3 % (38.7-73.9); Platelet Count 283 T/CUMM (130-400); Red Blood Count 3.29 MC/CUMM (3.8-5.5); Red Cell Distribution Width 14.6 % (9.3-17.3); White Blood Count 6.8 T/CUMM (4-12)
[2016-12-17 06:07] LABS: Calcium 8.5 MG/DL (8.5-10.1); Magnesium 2.1 MG/DL (1.8-2.4); Osmolality,Calculated 294.1 MOS/KG (273-304); Potassium 3.7 MMOL/L (3.5-5.1)
[2016-12-17] MEDS: LEVOTHYROXINE 125 MCG TABLET PO SCH (06:12)
[2016-12-17 06:45] LABS: Band Neutrophils 1 % (0-10); Burr Cells 2+; Hypochromasia 1+; Lymphocytes 10 % (20-55); Platelet Estimate Adequate; Segmented Neutrophils 85 % (50-85); Target Cells Slight; Total Cells Counted 100
[2016-12-17] MEDS: INSULIN REGULAR 100 UNIT/ML SUBCUT SCH ×4 (09:36→21:54)
[2016-12-17] MEDS: POTASSIUM CHLORIDE 20 MEQ TABLET PO SCH ×2 (09:37→21:53)
[2016-12-17] MEDS: ATORVASTATIN 20 MG TABLET PO SCH (09:37)
[2016-12-17] MEDS: CARVEDILOL 25 MG TABLET PO SCH ×2 (09:37→21:53)
[2016-12-17] MEDS: PANTOPRAZOLE 40 MG VIAL IV SCH (09:43)
[2016-12-17] MEDS: DIGOXIN 0.25 MG TABLET PO SCH (14:51)
[2016-12-17] MEDS: DEXTROSE 5% NACL 0.45% 1,000 ML IV SCH (15:23)
[2016-12-17] MEDS: INSULIN GLARGINE 100 UNIT/ML SUBCUT SCH (21:54)
[2016-12-18] MEDS: ALBUTEROL/IPRATROPIUM 3 ML NEB RESP TX SCH ×4 (00:30→18:59)
[2016-12-18] MEDS: AMPICILLIN INJ 1,000 MG in SODIUM CHLORIDE 0.9% 50 ML IV SCH ×3 (01:55→17:32)
[2016-12-18 04:47] LABS: Basophils % 0.2 % (0.0-0.8); Eosinophils % 0.3 % (0.00-10.9); Hematocrit 28.9 VOL% (35.7-47.0); Hemoglobin 10.3 GM/DL (12.0-16.0); Immature Granulocytes Absolute 0.18 #; Lymphocytes # 1.2 10*3/uL (1.4-4.0); Lymphocytes % 13.1 % (21.3-54.2); Mean Corpuscular HGB Conc 35.6 GM/DL (32-36); Mean Corpuscular Hemoglobin 31 PG (27-34); Mean Corpuscular Volume 87.6 FL (87-102); Mean Platelet Volume 9.9 FL (9.6-12.0); Monocytes # 0.4 10*3/uL (0.11-0.8); Monocytes % 4.7 % (1.7-12.7); Neutrophils # 7.3 10*3/uL (1.4-7.4); Neutrophils % 79.7 % (38.7-73.9); Platelet Count 301 T/CUMM (130-400); Red Cell Distribution Width 14.5 % (9.3-17.3); White Blood Count 9.1 T/CUMM (4-12)
[2016-12-18 05:28] LABS: Calcium 8.4 MG/DL (8.5-10.1); Magnesium 1.7 MG/DL (1.8-2.4); Osmolality,Calculated 292.1 MOS/KG (273-304); Potassium 4.2 MMOL/L (3.5-5.1)
[2016-12-18 06:04] LABS: Band Neutrophils 3 % (0-10); Giant Platelets Few; Hypochromasia 1+; Lymphocytes 7 % (20-55); Platelet Estimate Adequate; Segmented Neutrophils 85 % (50-85); Total Cells Counted 100
[2016-12-18 06:05] LABS: Microcytosis Slight
[2016-12-18] MEDS: LEVOTHYROXINE 125 MCG TABLET PO SCH (06:14)
[2016-12-18] MEDS: CLINDAMYCIN INJ 450 MG in SODIUM CHLORIDE 0.9% 100 ML IV SCH ×3 (06:18→23:35)
[2016-12-18] MEDS: DEXTROSE 50% 25 GM/50 ML VIAL IV PRN (07:52)
[2016-12-18] MEDS: INSULIN REGULAR 100 UNIT/ML SUBCUT SCH ×3 (08:51→21:37)
[2016-12-18] MEDS: LISINOPRIL 5 MG TABLET PO SCH (09:16)
[2016-12-18] MEDS: CARVEDILOL 25 MG TABLET PO SCH ×2 (09:16→21:36)
[2016-12-18] MEDS: POTASSIUM CHLORIDE 20 MEQ TABLET PO SCH ×2 (09:16→21:36)
[2016-12-18] MEDS: PANTOPRAZOLE 40 MG VIAL IV SCH (09:17)
[2016-12-18] MEDS: MAGNESIUM CHLORIDE 64 MG TABLET PO SCH ×2 (09:17→21:36)
[2016-12-18] MEDS: ATORVASTATIN 20 MG TABLET PO SCH (09:21)
[2016-12-18] MEDS: DIGOXIN 0.25 MG TABLET PO SCH (14:38)
[2016-12-18] MEDS: MAGNESIUM HYDROXIDE SUSP 30 ML UDCUP PO PRN (16:37)
[2016-12-19] MEDS: ALBUTEROL/IPRATROPIUM 3 ML NEB RESP TX SCH ×4 (01:40→19:20)
[2016-12-19] MEDS: AMPICILLIN INJ 1,000 MG in SODIUM CHLORIDE 0.9% 50 ML IV SCH ×3 (02:01→17:09)
[2016-12-19 06:31] LABS: Basophils % 0.2 % (0.0-0.8); Eosinophils % 0.3 % (0.00-10.9); Hematocrit 29.7 VOL% (35.7-47.0); Hemoglobin 10.4 GM/DL (12.0-16.0); Immature Granulocytes % 3.3 %; Immature Granulocytes Absolute 0.31 #; Lymphocytes # 1.4 10*3/uL (1.4-4.0); Lymphocytes % 14.8 % (21.3-54.2); Mean Corpuscular Hemoglobin 31 PG (27-34); Mean Corpuscular Volume 87.1 FL (87-102); Monocytes # 0.4 10*3/uL (0.11-0.8); Neutrophils # 7.2 10*3/uL (1.4-7.4); Neutrophils % 77.4 % (38.7-73.9); Platelet Count 312 T/CUMM (130-400); Red Blood Count 3.41 MC/CUMM (3.8-5.5); Red Cell Distribution Width 14.4 % (9.3-17.3); White Blood Count 9.3 T/CUMM (4-12)
[2016-12-19] MEDS: CLINDAMYCIN INJ 450 MG in SODIUM CHLORIDE 0.9% 100 ML IV SCH ×3 (06:31→23:29)
[2016-12-19] MEDS: LEVOTHYROXINE 125 MCG TABLET PO SCH (06:31)
[2016-12-19 06:57] LABS: Eosinophils 1 % (0-10); Lymphocytes 19 % (20-55); Segmented Neutrophils 76 % (50-85); Total Cells Counted 100
[2016-12-19 06:58] LABS: Platelet Estimate Normal
[2016-12-19 07:01] LABS: Calcium 8.4 MG/DL (8.5-10.1); Magnesium 2.2 MG/DL (1.8-2.4); Osmolality,Calculated 292.3 MOS/KG (273-304)
[2016-12-19] MEDS: MAGNESIUM CHLORIDE 64 MG TABLET PO SCH ×2 (08:32→21:36)
[2016-12-19] MEDS: LISINOPRIL 5 MG TABLET PO SCH (08:32)
[2016-12-19] MEDS: MAGNESIUM HYDROXIDE SUSP 30 ML UDCUP PO PRN (08:32)
[2016-12-19] MEDS: PANTOPRAZOLE 40 MG VIAL IV SCH (08:33)
[2016-12-19] MEDS: INSULIN REGULAR 100 UNIT/ML SUBCUT SCH ×4 (08:33→21:37)
[2016-12-19] MEDS: CARVEDILOL 25 MG TABLET PO SCH ×2 (08:33→21:37)
[2016-12-19] MEDS: POTASSIUM CHLORIDE 20 MEQ TABLET PO SCH ×2 (08:33→21:36)
[2016-12-19] MEDS: ATORVASTATIN 20 MG TABLET PO SCH (08:33)
[2016-12-19] MEDS: DIGOXIN 0.25 MG TABLET PO SCH (12:37)
[2016-12-20] MEDS: ALBUTEROL/IPRATROPIUM 3 ML NEB RESP TX SCH ×4 (00:52→20:00)
[2016-12-20] MEDS: AMPICILLIN INJ 1,000 MG in SODIUM CHLORIDE 0.9% 50 ML IV SCH ×3 (02:57→18:02)
[2016-12-20 05:15] LABS: Basophils % 0.2 % (0.0-0.8); Eosinophils # 0.1 10*3/uL (0.0-0.87); Eosinophils % 0.5 % (0.00-10.9); Hematocrit 28.8 VOL% (35.7-47.0); Hemoglobin 9.8 GM/DL (12.0-16.0); Immature Granulocytes % 2.4 %; Immature Granulocytes Absolute 0.29 #; Lymphocytes # 1.4 10*3/uL (1.4-4.0); Mean Corpuscular Hemoglobin 30 PG (27-34); Mean Corpuscular Volume 88.6 FL (87-102); Monocytes # 0.4 10*3/uL (0.11-0.8); Monocytes % 3.1 % (1.7-12.7); Neutrophils # 10.2 10*3/uL (1.4-7.4); Neutrophils % 82.8 % (38.7-73.9); Platelet Count 304 T/CUMM (130-400); Red Blood Count 3.25 MC/CUMM (3.8-5.5); Red Cell Distribution Width 14.3 % (9.3-17.3); White Blood Count 12.3 T/CUMM (4-12)
[2016-12-20 05:43] LABS: Band Neutrophils 2 % (0-10); Giant Platelets Few; Hypochromasia 1+; Lymphocytes 12 % (20-55); Ovalocytes Slight; Platelet Estimate Adequate; Segmented Neutrophils 82 % (50-85); Total Cells Counted 100
[2016-12-20 05:44] LABS: Microcytosis Slight
[2016-12-20 05:46] LABS: Calcium 8.7 MG/DL (8.5-10.1); Osmolality,Calculated 294.1 MOS/KG (273-304); Potassium 4.9 MMOL/L (3.5-5.1)
[2016-12-20] MEDS: LEVOTHYROXINE 125 MCG TABLET PO SCH (06:09)
[2016-12-20] MEDS: CLINDAMYCIN INJ 450 MG in SODIUM CHLORIDE 0.9% 100 ML IV SCH ×2 (06:09→14:55)
[2016-12-20] MEDS: PANTOPRAZOLE 40 MG VIAL IV SCH (09:38)
[2016-12-20] MEDS: ATORVASTATIN 20 MG TABLET PO SCH (09:41)
[2016-12-20] MEDS: MAGNESIUM CHLORIDE 64 MG TABLET PO SCH ×2 (09:41→21:09)
[2016-12-20] MEDS: LISINOPRIL 5 MG TABLET PO SCH (09:41)
[2016-12-20] MEDS: POTASSIUM CHLORIDE 20 MEQ TABLET PO SCH ×2 (09:41→21:09)
[2016-12-20] MEDS: CARVEDILOL 25 MG TABLET PO SCH ×2 (09:41→21:09)
[2016-12-20] MEDS ORDERED: PROPOFOL 200 MG/20 ML VIAL IV ONE (12:09)
[2016-12-20] MEDS ORDERED: LIDOCAINE 2% 5 ML VIAL ONE (12:09)
[2016-12-20] MEDS: INSULIN REGULAR 100 UNIT/ML SUBCUT SCH ×3 (12:36→21:09)
[2016-12-20] MEDS: DIGOXIN 0.25 MG TABLET PO SCH (14:47)
[2016-12-20] MEDS: PIPERACILLIN/TAZOBACTAM 3,375 MG in SODIUM CHLORIDE 0.9% 100 ML IV SCH (18:44)
[2016-12-21] MEDS: PIPERACILLIN/TAZOBACTAM 3,375 MG in SODIUM CHLORIDE 0.9% 100 ML IV SCH ×2 (01:44→10:22)
[2016-12-21] MEDS: ALBUTEROL/IPRATROPIUM 3 ML NEB RESP TX SCH ×3 (02:19→12:38)
[2016-12-21] MEDS: LEVOTHYROXINE 125 MCG TABLET PO SCH (06:46)
[2016-12-21] MEDS: CARVEDILOL 25 MG TABLET PO SCH (08:50)
[2016-12-21] MEDS: MAGNESIUM CHLORIDE 64 MG TABLET PO SCH (08:50)
[2016-12-21] MEDS: POTASSIUM CHLORIDE 20 MEQ TABLET PO SCH (08:50)
[2016-12-21] MEDS: LISINOPRIL 5 MG TABLET PO SCH (08:50)
[2016-12-21] MEDS: ATORVASTATIN 20 MG TABLET PO SCH (08:50)
[2016-12-21] MEDS: PANTOPRAZOLE 40 MG VIAL IV SCH (08:59)
[2016-12-21] MEDS: INSULIN REGULAR 100 UNIT/ML SUBCUT SCH ×2 (09:37→13:25)
[2016-12-21 12:07] VITALS: BP 132/66
[2016-12-21] MEDS: DIGOXIN 0.25 MG TABLET PO SCH (13:25)
== END 2016-12-21 15:05 | DRG 308 ==
LOC: EDUNIT# → N.ED 18:12 → N.EDINP 21:19 → SUATTDRO 21:19 → N.5E 22:00 → N.TELEN 12-12 12:04
PROVIDERS: ADMIT Internal Medicine; ATTEND Internal Medicine

== ENCOUNTER 2017-01-04 19:15 | Inpatient (IN) ==
[2017-01-04] MEDS ORDERED: SODIUM CHLORIDE 0.9% 1,000 ML IV STA (20:02)
[2017-01-04 21:14] LABS: Basophils % 0.2 % (0.0-0.8); Eosinophils % 0.1 % (0.00-10.9); Hematocrit 37.7 VOL% (35.7-47.0); Hemoglobin 12.5 GM/DL (12.0-16.0); Immature Granulocytes % 1.1 %; Immature Granulocytes Absolute 0.12 #; Lymphocytes # 1.4 10*3/uL (1.4-4.0); Lymphocytes % 12.3 % (21.3-54.2); Mean Corpuscular HGB Conc 33.2 GM/DL (32-36); Mean Corpuscular Hemoglobin 30 PG (27-34); Mean Corpuscular Volume 90.8 FL (87-102); Mean Platelet Volume 10.6 FL (9.6-12.0); Monocytes # 0.7 10*3/uL (0.11-0.8); Monocytes % 6.4 % (1.7-12.7); Neutrophils # 9.1 10*3/uL (1.4-7.4); Neutrophils % 79.9 % (38.7-73.9); Platelet Count 270 T/CUMM (130-400); Red Blood Count 4.15 MC/CUMM (3.8-5.5); Red Cell Distribution Width 15.4 % (9.3-17.3); White Blood Count 11.4 T/CUMM (4-12)
[2017-01-04 21:33] LABS: Ammonia < 10 UMOL/L (11-32)
[2017-01-04 21:37] LABS: Lactic Acid 1.4 MMOL/L (0.4-2.0)
[2017-01-04 21:44] LABS: Alanine Aminotransferase 20 U/L (13-56); Albumin 2.2 G/DL (3.4-5.0); Alkaline Phosphatase 106 U/L (45-117); Aspartate Amino Transferase 44 U/L (0-37); Blood Urea Nitrogen 64 MG/DL (7-18); CKMB % 10.2 %; Free T4 (Free Thyroxine) 1.62 NG/DL (0.76-1.46); Glucose 239 MG/DL (74-106); Osmolality,Calculated 317.4 MOS/KG (273-304); Potassium 4.4 MMOL/L (3.5-5.1); Sodium 147 MMOL/L (136-145); Total Protein 7.1 G/DL (6.4-8.3)
[2017-01-04] MEDS ORDERED: LEVOFLOXACIN INJ 750 MG in PREMIX 1 EACH IV STA (22:08)
[2017-01-04 22:13] LABS: Apearance,Urine Slightly Hazy (Clear); Bacteria,Urine Occasional /HPF (Few); Bilirubin,Urine Negative (Negative); Blood, Urine Negative (Negative); Glucose,Urine (UA) Negative (Negative); Hyaline Casts,Urine 5 /LPF (0-3); Ketones,Urine Negative (Negative); Mucus,Urine Occasional /LPF (Occasional); Nitrite,Urine Negative (Negative); Protein,Urine Negative; RBC,Urine 1 /HPF (0-4); Squamous Epithelial Cell,Urine Occasional /HPF (0-10); Urine Color Yellow (Yellow); Urine Urobilinogen < 2.0 EU/DL (0.2-1.0); WBC,Urine 22 /HPF (0-6)
[2017-01-04 22:23] LABS: Barbiturates Screen,Urine Negative (Negative); Benzodiazepines Screen,Urine Negative (Negative); Cannabinoid Screen,Urine Negative (Negative); Opiate Screen,Urine Negative (Negative); Phencyclidine Screen,Urine Negative (Negative)
[2017-01-04] MEDS ORDERED: LEVOFLOXACIN INJ 150 ML IV ONE (22:48)
[2017-01-05] MEDS ORDERED: ONDANSETRON 4 MG/2 ML VIAL IV PRN (00:23)
[2017-01-05] MEDS ORDERED: BISACODYL 10 MG SUPP RECTAL PRN (00:28)
[2017-01-05] MEDS ORDERED: ACETAMINOPHEN 650 MG SUPP RECTAL PRN (00:28)
[2017-01-05] MEDS ORDERED: SODIUM CHLORIDE 0.45% 1,000 ML IV SCH (00:30)
[2017-01-05] MEDS ORDERED: DEXTROSE 50% 25 GM/50 ML VIAL IV PRN (00:34)
[2017-01-05] MEDS ORDERED: GLUCAGON 1 MG VIAL IM PRN (00:34)
[2017-01-05 00:57] LABS: INR 1.1; PT Patient Result 11.5 SECS; Partial Thromboplastin Time 22.5 SECS (0-40)
[2017-01-05] MEDS: cefTRIAXone 1,000 MG in SYRINGE 1 EACH IV SCH (02:15)
[2017-01-05] MEDS: ENOXAPARIN 60 MG/0.6 ML SYRINGE SUBCUT SCH (02:15)
[2017-01-05 03:27] LABS: Basophils % 0.3 % (0.0-0.8); Eosinophils % 0.1 % (0.00-10.9); Hemoglobin 12.2 GM/DL (12.0-16.0); Immature Granulocytes % 1.4 %; Immature Granulocytes Absolute 0.15 #; Lymphocytes # 1.4 10*3/uL (1.4-4.0); Lymphocytes % 13.1 % (21.3-54.2); Mean Corpuscular HGB Conc 32.1 GM/DL (32-36); Mean Corpuscular Hemoglobin 30 PG (27-34); Mean Corpuscular Volume 94.5 FL (87-102); Mean Platelet Volume 10.8 FL (9.6-12.0); Monocytes # 0.8 10*3/uL (0.11-0.8); Neutrophils # 8.5 10*3/uL (1.4-7.4); Neutrophils % 78.1 % (38.7-73.9); Platelet Count 226 T/CUMM (130-400); Red Blood Count 4.02 MC/CUMM (3.8-5.5); Red Cell Distribution Width 15.5 % (9.3-17.3); White Blood Count 10.8 T/CUMM (4-12)
[2017-01-05 03:53] LABS: Calcium 8.9 MG/DL (8.5-10.1); Magnesium 1.9 MG/DL (1.8-2.4); Osmolality,Calculated 316.4 MOS/KG (273-304); Potassium 4.5 MMOL/L (3.5-5.1)
[2017-01-05] MEDS ORDERED: LEVOTHYROXINE 75 MCG TABLET PO SCH (06:30)
[2017-01-05] MEDS: SODIUM CHLORIDE 0.45% 1,000 ML IV SCH ×3 (09:00→20:00)
[2017-01-05] MEDS ORDERED: POTASSIUM CHLORIDE 10 MEQ TABLET PO SCH (09:00)
[2017-01-05] MEDS ORDERED: SODIUM CHLORIDE 0.9% 1,000 ML IV SCH (09:30)
[2017-01-05] MEDS ORDERED: SODIUM PHOSPHATE ENEMA 133 ML BOTTLE RECTAL ONE (10:01)
[2017-01-05] MEDS: MULTIVITAMIN (INTRINSIC) CAPSULE PO SCH ×2 (10:43→21:00)
[2017-01-05] MEDS: ASPIRIN 325 MG TABLET PO SCH (10:43)
[2017-01-05] MEDS: MEGESTROL 400 MG/10 ML UDCUP PO SCH ×3 (10:44→21:00)
[2017-01-05] MEDS: CARVEDILOL 25 MG TABLET PO SCH ×2 (10:44→16:42)
[2017-01-05] MEDS: PANTOPRAZOLE 40 MG TABLET PO SCH ×2 (10:44→21:00)
[2017-01-05] MEDS: MEMANTINE 10 MG TABLET PO SCH ×2 (10:44→21:00)
[2017-01-05] MEDS: MAGNESIUM CHLORIDE 64 MG TABLET PO SCH ×2 (10:44→21:00)
[2017-01-05] MEDS: ATORVASTATIN 20 MG TABLET PO SCH (10:44)
[2017-01-05] MEDS ORDERED: DIGOXIN 0.25 MG TABLET PO SCH (13:00)
[2017-01-05] MEDS: DONEPEZIL 10 MG TABLET PO SCH (21:00)
[2017-01-06] MEDS: ENOXAPARIN 60 MG/0.6 ML SYRINGE SUBCUT SCH (01:10)
[2017-01-06] MEDS: cefTRIAXone 1,000 MG in SYRINGE 1 EACH IV SCH (01:11)
[2017-01-06] MEDS: SODIUM CHLORIDE 0.45% 1,000 ML IV SCH ×3 (04:07→15:14)
[2017-01-06 04:45] LABS: Basophils # 0.1 10*3/uL (0.0-0.2); Basophils % 0.5 % (0.0-0.8); Eosinophils % 0.4 % (0.00-10.9); Hematocrit 38.8 VOL% (35.7-47.0); Hemoglobin 12.2 GM/DL (12.0-16.0); Immature Granulocytes % 2.2 %; Immature Granulocytes Absolute 0.21 #; Lymphocytes # 1.8 10*3/uL (1.4-4.0); Lymphocytes % 19.3 % (21.3-54.2); Mean Corpuscular HGB Conc 31.4 GM/DL (32-36); Mean Corpuscular Hemoglobin 30 PG (27-34); Mean Corpuscular Volume 95.8 FL (87-102); Mean Platelet Volume 10.8 FL (9.6-12.0); Monocytes # 0.9 10*3/uL (0.11-0.8); Monocytes % 9.6 % (1.7-12.7); Neutrophils # 6.4 10*3/uL (1.4-7.4); Platelet Count 141 T/CUMM (130-400); Red Blood Count 4.05 MC/CUMM (3.8-5.5); Red Cell Distribution Width 15.8 % (9.3-17.3); White Blood Count 9.4 T/CUMM (4-12)
[2017-01-06 05:06] LABS: Calcium 8.1 MG/DL (8.5-10.1); Magnesium 1.7 MG/DL (1.8-2.4); Osmolality,Calculated 307.4 MOS/KG (273-304); Potassium 4.3 MMOL/L (3.5-5.1)
[2017-01-06] MEDS: LEVOTHYROXINE 100 MCG TABLET PO SCH (05:50)
[2017-01-06] MEDS: CARVEDILOL 25 MG TABLET PO SCH (08:10)
[2017-01-06] MEDS: CLOPIDOGREL 75 MG TABLET PO SCH (08:11)
[2017-01-06] MEDS: PANTOPRAZOLE 40 MG TABLET PO SCH ×2 (08:11→21:15)
[2017-01-06] MEDS: MULTIVITAMIN (INTRINSIC) CAPSULE PO SCH ×2 (08:11→21:16)
[2017-01-06] MEDS: MEGESTROL 400 MG/10 ML UDCUP PO SCH ×3 (08:11→21:15)
[2017-01-06] MEDS: MAGNESIUM CHLORIDE 64 MG TABLET PO SCH ×2 (08:11→21:15)
[2017-01-06] MEDS: ATORVASTATIN 20 MG TABLET PO SCH (08:11)
[2017-01-06] MEDS: MEMANTINE 10 MG TABLET PO SCH ×2 (08:11→21:15)
[2017-01-06] MEDS: ASPIRIN 325 MG TABLET PO SCH (08:11)
[2017-01-06] MEDS ORDERED: MAGNESIUM SULF RIDER 2 GM in PREMIX 1 EACH IV ONE ×2 (09:58→13:22)
[2017-01-06] MEDS: CARVEDILOL 6.25 MG TABLET PO SCH (17:54)
[2017-01-06] MEDS: ZINC OXIDE PASTE 113 GM TUBE TOP SCH ×2 (18:00→22:20)
[2017-01-06] MEDS: DONEPEZIL 10 MG TABLET PO SCH (21:15)
[2017-01-07] MEDS: ENOXAPARIN 60 MG/0.6 ML SYRINGE SUBCUT SCH (01:33)
[2017-01-07] MEDS: cefTRIAXone 1,000 MG in SYRINGE 1 EACH IV SCH (01:33)
[2017-01-07 05:36] LABS: Basophils % 0.2 % (0.0-0.8); Eosinophils # 0.1 10*3/uL (0.0-0.87); Hematocrit 32.4 VOL% (35.7-47.0); Hemoglobin 10.7 GM/DL (12.0-16.0); Immature Granulocytes % 1.8 %; Immature Granulocytes Absolute 0.15 #; Lymphocytes # 1.3 10*3/uL (1.4-4.0); Lymphocytes % 16.4 % (21.3-54.2); Mean Corpuscular Hemoglobin 30 PG (27-34); Mean Corpuscular Volume 91.3 FL (87-102); Mean Platelet Volume 11.1 FL (9.6-12.0); Monocytes # 0.6 10*3/uL (0.11-0.8); Monocytes % 7.9 % (1.7-12.7); Neutrophils # 5.9 10*3/uL (1.4-7.4); Neutrophils % 72.7 % (38.7-73.9); Platelet Count 121 T/CUMM (130-400); Red Blood Count 3.55 MC/CUMM (3.8-5.5); Red Cell Distribution Width 15.7 % (9.3-17.3); White Blood Count 8.1 T/CUMM (4-12)
[2017-01-07 06:23] LABS: Calcium 8.5 MG/DL (8.5-10.1); Magnesium 2.6 MG/DL (1.8-2.4); Osmolality,Calculated 309.1 MOS/KG (273-304); Potassium 3.2 MMOL/L (3.5-5.1)
[2017-01-07] MEDS: CARVEDILOL 6.25 MG TABLET PO SCH ×2 (09:55→17:16)
[2017-01-07] MEDS: LEVOTHYROXINE 100 MCG TABLET PO SCH (09:55)
[2017-01-07] MEDS: ZINC OXIDE PASTE 113 GM TUBE TOP SCH ×2 (09:55→20:30)
[2017-01-07] MEDS: MEMANTINE 10 MG TABLET PO SCH ×2 (09:56→20:30)
[2017-01-07] MEDS: MEGESTROL 400 MG/10 ML UDCUP PO SCH ×3 (09:56→20:29)
[2017-01-07] MEDS: ASPIRIN 325 MG TABLET PO SCH (09:56)
[2017-01-07] MEDS: ATORVASTATIN 20 MG TABLET PO SCH (09:56)
[2017-01-07] MEDS: CLOPIDOGREL 75 MG TABLET PO SCH (09:56)
[2017-01-07] MEDS: MULTIVITAMIN (INTRINSIC) CAPSULE PO SCH ×2 (09:57→20:30)
[2017-01-07] MEDS: PANTOPRAZOLE 40 MG TABLET PO SCH ×2 (09:57→20:30)
[2017-01-07] MEDS: MAGNESIUM CHLORIDE 64 MG TABLET PO SCH ×2 (09:57→20:30)
[2017-01-07] MEDS: POTASSIUM CHLORIDE RIDER 10 MEQ in PREMIX 1 EACH IV PRN ×4 (10:03→20:31)
[2017-01-07] MEDS: DEXTROSE 5% 1,000 ML IV SCH (15:54)
[2017-01-07] MEDS: DONEPEZIL 10 MG TABLET PO SCH (20:29)
[2017-01-08] MEDS: cefTRIAXone 1,000 MG in SYRINGE 1 EACH IV SCH (01:44)
[2017-01-08 04:21] LABS: Basophils % 0.2 % (0.0-0.8); Eosinophils # 0.1 10*3/uL (0.0-0.87); Eosinophils % 1.1 % (0.00-10.9); Hematocrit 30.6 VOL% (35.7-47.0); Hemoglobin 10.2 GM/DL (12.0-16.0); Immature Granulocytes % 2.2 %; Immature Granulocytes Absolute 0.18 #; Lymphocytes # 1.2 10*3/uL (1.4-4.0); Mean Corpuscular HGB Conc 33.3 GM/DL (32-36); Mean Corpuscular Hemoglobin 30 PG (27-34); Mean Corpuscular Volume 90.3 FL (87-102); Mean Platelet Volume 10.8 FL (9.6-12.0); Monocytes # 0.6 10*3/uL (0.11-0.8); Monocytes % 7.1 % (1.7-12.7); Neutrophils # 6.2 10*3/uL (1.4-7.4); Neutrophils % 74.4 % (38.7-73.9); Platelet Count 84 T/CUMM (130-400); Red Blood Count 3.39 MC/CUMM (3.8-5.5); Red Cell Distribution Width 15.8 % (9.3-17.3); White Blood Count 8.3 T/CUMM (4-12)
[2017-01-08 04:45] LABS: Calcium 8.1 MG/DL (8.5-10.1)
[2017-01-08 04:46] LABS: Magnesium 2.1 MG/DL (1.8-2.4); Potassium 3.5 MMOL/L (3.5-5.1)
[2017-01-08 05:05] LABS: Eosinophils 1 % (0-10); Hypochromasia 1+; Lymphocytes 13 % (20-55); Segmented Neutrophils 83 % (50-85); Total Cells Counted 100
[2017-01-08 05:06] LABS: Microcytosis Slight; Ovalocytes Slight; Platelet Estimate Decreased
[2017-01-08] MEDS: LEVOTHYROXINE 100 MCG TABLET PO SCH ×2 (05:30→12:18)
[2017-01-08] MEDS: ZINC OXIDE PASTE 113 GM TUBE TOP SCH ×2 (08:28→20:15)
[2017-01-08] MEDS: ASPIRIN 325 MG TABLET PO SCH ×2 (09:20→12:18)
[2017-01-08] MEDS: CARVEDILOL 6.25 MG TABLET PO SCH ×3 (09:20→16:12)
[2017-01-08] MEDS: PANTOPRAZOLE 40 MG TABLET PO SCH ×3 (09:21→20:16)
[2017-01-08] MEDS: ATORVASTATIN 20 MG TABLET PO SCH ×2 (09:21→12:18)
[2017-01-08] MEDS: MEGESTROL 400 MG/10 ML UDCUP PO SCH ×4 (09:21→20:15)
[2017-01-08] MEDS: MAGNESIUM CHLORIDE 64 MG TABLET PO SCH ×3 (09:21→20:16)
[2017-01-08] MEDS: CLOPIDOGREL 75 MG TABLET PO SCH ×2 (09:21→11:23)
[2017-01-08] MEDS: MEMANTINE 10 MG TABLET PO SCH ×3 (09:21→20:16)
[2017-01-08] MEDS: MULTIVITAMIN (INTRINSIC) CAPSULE PO SCH ×2 (09:22→20:16)
[2017-01-08] MEDS: DEXTROSE 5% 1,000 ML IV SCH (12:17)
[2017-01-08] MEDS: DONEPEZIL 10 MG TABLET PO SCH (20:15)
[2017-01-09] MEDS: cefTRIAXone 1,000 MG in SYRINGE 1 EACH IV SCH (00:46)
[2017-01-09 05:38] LABS: Basophils % 0.2 % (0.0-0.8); Eosinophils # 0.1 10*3/uL (0.0-0.87); Hematocrit 28.5 VOL% (35.7-47.0); Hemoglobin 9.7 GM/DL (12.0-16.0); Immature Granulocytes % 1.4 %; Immature Granulocytes Absolute 0.15 #; Lymphocytes # 1.6 10*3/uL (1.4-4.0); Lymphocytes % 15.5 % (21.3-54.2); Mean Corpuscular Hemoglobin 30 PG (27-34); Mean Corpuscular Volume 89.3 FL (87-102); Mean Platelet Volume 10.1 FL (9.6-12.0); Monocytes # 0.6 10*3/uL (0.11-0.8); Monocytes % 5.8 % (1.7-12.7); Neutrophils # 8.1 10*3/uL (1.4-7.4); Neutrophils % 76.1 % (38.7-73.9); Red Blood Count 3.19 MC/CUMM (3.8-5.5); Red Cell Distribution Width 15.7 % (9.3-17.3); White Blood Count 10.6 T/CUMM (4-12)
[2017-01-09 05:40] LABS: Platelet Count 65 T/CUMM (130-400)
[2017-01-09 05:59] LABS: Calcium 8.1 MG/DL (8.5-10.1); Magnesium 1.7 MG/DL (1.8-2.4); Potassium 2.9 MMOL/L (3.5-5.1)
[2017-01-09 06:03] LABS: Platelet Estimate Decreased
[2017-01-09 06:06] LABS: Microcytosis 1+
[2017-01-09 06:07] LABS: Hypochromasia Slight; Ovalocytes Slight
[2017-01-09] MEDS: LEVOTHYROXINE 100 MCG TABLET PO SCH (06:08)
[2017-01-09] MEDS: POTASSIUM CHLORIDE RIDER 10 MEQ in PREMIX 1 EACH IV PRN ×5 (06:12→16:47)
[2017-01-09] MEDS ORDERED: MAGNESIUM SULF RIDER 2 GM in PREMIX 1 EACH IV ONE (08:02)
[2017-01-09] MEDS: DEXTROSE 5% 1,000 ML IV SCH (09:12)
[2017-01-09] MEDS: CARVEDILOL 6.25 MG TABLET PO SCH ×2 (09:18→16:15)
[2017-01-09] MEDS: MEGESTROL 400 MG/10 ML UDCUP PO SCH ×3 (09:19→20:21)
[2017-01-09] MEDS: ZINC OXIDE PASTE 113 GM TUBE TOP SCH ×2 (09:19→20:33)
[2017-01-09] MEDS: MEMANTINE 10 MG TABLET PO SCH ×2 (09:19→20:21)
[2017-01-09] MEDS: ATORVASTATIN 20 MG TABLET PO SCH (09:19)
[2017-01-09] MEDS: MAGNESIUM CHLORIDE 64 MG TABLET PO SCH ×2 (09:20→20:22)
[2017-01-09] MEDS: MULTIVITAMIN (INTRINSIC) CAPSULE PO SCH ×2 (09:20→20:22)
[2017-01-09] MEDS: DONEPEZIL 10 MG TABLET PO SCH (20:21)
[2017-01-10] MEDS: POTASSIUM CHLORIDE RIDER 10 MEQ in PREMIX 1 EACH IV PRN ×3 (00:54→02:42)
[2017-01-10] MEDS: DEXTROSE 5% 1,000 ML IV SCH ×4 (01:35→23:35)
[2017-01-10 03:58] LABS: Basophils % 0.3 % (0.0-0.8); Eosinophils # 0.1 10*3/uL (0.0-0.87); Eosinophils % 1.1 % (0.00-10.9); Hematocrit 28.9 VOL% (35.7-47.0); Hemoglobin 9.6 GM/DL (12.0-16.0); Immature Granulocytes % 2.7 %; Immature Granulocytes Absolute 0.19 #; Lymphocytes % 28.1 % (21.3-54.2); Mean Corpuscular HGB Conc 33.2 GM/DL (32-36); Mean Corpuscular Hemoglobin 30 PG (27-34); Mean Corpuscular Volume 89.5 FL (87-102); Mean Platelet Volume 11.1 FL (9.6-12.0); Monocytes # 0.6 10*3/uL (0.11-0.8); Monocytes % 7.8 % (1.7-12.7); Neutrophils # 4.2 10*3/uL (1.4-7.4); Platelet Count 59 T/CUMM (130-400); Red Blood Count 3.23 MC/CUMM (3.8-5.5); Red Cell Distribution Width 15.7 % (9.3-17.3)
[2017-01-10 04:01] LABS: INR 1.1; PT Patient Result 11.9 SECS
[2017-01-10 04:36] LABS: Calcium 8.3 MG/DL (8.5-10.1); Magnesium 1.9 MG/DL (1.8-2.4); Osmolality,Calculated 297.4 MOS/KG (273-304); Potassium 3.9 MMOL/L (3.5-5.1)
[2017-01-10 05:19] LABS: Band Neutrophils 1 % (0-10); Burr Cells Slight; Eosinophils 4 % (0-10); Giant Platelets Few; Hypochromasia 1+; Lymphocytes 22 % (20-55); Microcytosis Slight; Myelocytes 1 %; Ovalocytes Slight; Platelet Estimate Decreased; Segmented Neutrophils 67 % (50-85); Total Cells Counted 100
[2017-01-10] MEDS: LEVOTHYROXINE 100 MCG TABLET PO SCH (06:37)
[2017-01-10] MEDS: ZINC OXIDE PASTE 113 GM TUBE TOP SCH ×2 (09:00→20:25)
[2017-01-10] MEDS: ATORVASTATIN 20 MG TABLET PO SCH (10:08)
[2017-01-10] MEDS: CARVEDILOL 6.25 MG TABLET PO SCH ×2 (10:08→17:17)
[2017-01-10] MEDS: MEGESTROL 400 MG/10 ML UDCUP PO SCH ×3 (10:08→20:25)
[2017-01-10] MEDS: MAGNESIUM CHLORIDE 64 MG TABLET PO SCH ×2 (10:09→20:24)
[2017-01-10] MEDS: MULTIVITAMIN (INTRINSIC) CAPSULE PO SCH ×2 (10:09→20:24)
[2017-01-10] MEDS: MEMANTINE 10 MG TABLET PO SCH ×2 (10:09→20:24)
[2017-01-10] MEDS: DONEPEZIL 10 MG TABLET PO SCH (20:24)
[2017-01-11 05:32] LABS: Basophils % 0.6 % (0.0-0.8); Eosinophils # 0.1 10*3/uL (0.0-0.87); Eosinophils % 0.9 % (0.00-10.9); Hemoglobin 9.7 GM/DL (12.0-16.0); Immature Granulocytes % 3.3 %; Immature Granulocytes Absolute 0.22 #; Lymphocytes # 1.9 10*3/uL (1.4-4.0); Lymphocytes % 28.6 % (21.3-54.2); Mean Corpuscular HGB Conc 33.4 GM/DL (32-36); Mean Corpuscular Hemoglobin 30 PG (27-34); Mean Corpuscular Volume 88.7 FL (87-102); Mean Platelet Volume 11.5 FL (9.6-12.0); Monocytes # 0.5 10*3/uL (0.11-0.8); Neutrophils # 3.9 10*3/uL (1.4-7.4); Neutrophils % 59.6 % (38.7-73.9); Platelet Count 86 T/CUMM (130-400); Red Blood Count 3.27 MC/CUMM (3.8-5.5); Red Cell Distribution Width 15.5 % (9.3-17.3); White Blood Count 6.6 T/CUMM (4-12)
[2017-01-11] MEDS: DEXTROSE 5% 1,000 ML IV SCH ×2 (05:42→20:37)
[2017-01-11 05:45] LABS: INR 1.1
[2017-01-11 05:53] LABS: Calcium 7.8 MG/DL (8.5-10.1); Osmolality,Calculated 286.3 MOS/KG (273-304); Potassium 3.3 MMOL/L (3.5-5.1)
[2017-01-11] MEDS: POTASSIUM CHLORIDE RIDER 10 MEQ in PREMIX 1 EACH IV PRN ×6 (06:21→20:24)
[2017-01-11] MEDS: LEVOTHYROXINE 100 MCG TABLET PO SCH (06:21)
[2017-01-11 06:22] LABS: Hypochromasia Slight; Microcytosis Slight
[2017-01-11 06:23] LABS: Platelet Estimate Decreased
[2017-01-11] MEDS ORDERED: ceFAZolin 1,000 MG in SYRINGE 1 EACH IV ONE (07:00)
[2017-01-11] MEDS: ATORVASTATIN 20 MG TABLET PO SCH (08:58)
[2017-01-11] MEDS: ZINC OXIDE PASTE 113 GM TUBE TOP SCH ×2 (08:58→20:25)
[2017-01-11] MEDS: MEGESTROL 400 MG/10 ML UDCUP PO SCH ×3 (08:58→20:24)
[2017-01-11] MEDS: CARVEDILOL 6.25 MG TABLET PO SCH ×2 (08:58→17:37)
[2017-01-11] MEDS: MAGNESIUM CHLORIDE 64 MG TABLET PO SCH ×2 (08:59→20:25)
[2017-01-11] MEDS: MEMANTINE 10 MG TABLET PO SCH ×2 (08:59→20:25)
[2017-01-11] MEDS: MULTIVITAMIN (INTRINSIC) CAPSULE PO SCH ×2 (08:59→20:25)
[2017-01-11] MEDS: LIDOCAINE 5% PATCH TRANSDERM SCH (09:53)
[2017-01-11] MEDS ORDERED: SODIUM CHLORIDE 0.9% 100 ML IV ONE (13:06)
[2017-01-11] MEDS ORDERED: PROPOFOL 200 MG/20 ML VIAL IV ONE (13:25)
[2017-01-11] MEDS ORDERED: LIDOCAINE 2% 5 ML VIAL ONE (13:25)
[2017-01-11] MEDS ORDERED: ePHEDrine 50 MG/ML AMP ONE (13:41)
[2017-01-11] MEDS: DONEPEZIL 10 MG TABLET PO SCH (20:25)
[2017-01-12 05:42] LABS: Basophils % 0.6 % (0.0-0.8); Eosinophils % 0.6 % (0.00-10.9); Hematocrit 29.8 VOL% (35.7-47.0); Hemoglobin 10.3 GM/DL (12.0-16.0); Immature Granulocytes % 2.3 %; Immature Granulocytes Absolute 0.16 #; Lymphocytes # 1.4 10*3/uL (1.4-4.0); Lymphocytes % 20.6 % (21.3-54.2); Mean Corpuscular HGB Conc 34.6 GM/DL (32-36); Mean Corpuscular Hemoglobin 30 PG (27-34); Mean Corpuscular Volume 87.1 FL (87-102); Mean Platelet Volume 10.8 FL (9.6-12.0); Monocytes # 0.4 10*3/uL (0.11-0.8); Monocytes % 5.4 % (1.7-12.7); Neutrophils # 4.9 10*3/uL (1.4-7.4); Neutrophils % 70.5 % (38.7-73.9); Platelet Count 112 T/CUMM (130-400); Red Blood Count 3.42 MC/CUMM (3.8-5.5); Red Cell Distribution Width 15.5 % (9.3-17.3); White Blood Count 6.9 T/CUMM (4-12)
[2017-01-12 06:18] LABS: Albumin 1.6 G/DL (3.4-5.0); Bilirubin,Total 0.6 MG/DL (0.2-1.0); Calcium 8.3 MG/DL (8.5-10.1); Magnesium 1.7 MG/DL (1.8-2.4); Osmolality,Calculated 283.4 MOS/KG (273-304); Phosphorous 1.4 MG/DL (2.5-4.9); Potassium 3.6 MMOL/L (3.5-5.1); Total Protein 4.8 G/DL (6.4-8.3)
[2017-01-12] MEDS: LIDOCAINE 5% PATCH TRANSDERM SCH (09:05)
[2017-01-12] MEDS: MULTIVITAMIN (INTRINSIC) CAPSULE PO SCH ×2 (09:06→22:19)
[2017-01-12] MEDS: MEGESTROL 400 MG/10 ML UDCUP PO SCH ×3 (09:06→22:18)
[2017-01-12] MEDS: MAGNESIUM CHLORIDE 64 MG TABLET PO SCH ×2 (09:07→22:19)
[2017-01-12] MEDS: ATORVASTATIN 20 MG TABLET PO SCH (09:07)
[2017-01-12] MEDS: CITALOPRAM 20 MG TABLET PO SCH (09:07)
[2017-01-12] MEDS: MEMANTINE 10 MG TABLET PO SCH ×2 (09:07→22:19)
[2017-01-12] MEDS: LEVOTHYROXINE 100 MCG TABLET PO SCH (09:07)
[2017-01-12] MEDS: CARVEDILOL 6.25 MG TABLET PO SCH ×2 (09:07→16:38)
[2017-01-12] MEDS: ZINC OXIDE PASTE 113 GM TUBE TOP SCH ×2 (09:08→22:19)
[2017-01-12] MEDS ORDERED: MAGNESIUM SULF RIDER 2 GM in PREMIX 1 EACH IV PRN (09:39)
[2017-01-12] MEDS ORDERED: MAGNESIUM SULF RIDER 4 GM in PREMIX 1 EACH IV PRN (09:39)
[2017-01-12] MEDS ORDERED: SODIUM PHOSPHATE INJ 30 MMOL in SODIUM CHLORIDE 0.9% 250 ML IV ONE (09:41)
[2017-01-12] MEDS ORDERED: TUBERCULIN SKIN TEST 0.1 ML SYRINGE INTRADERM ONE (09:46)
[2017-01-12] MEDS: DONEPEZIL 10 MG TABLET PO SCH (22:19)
[2017-01-13] MEDS: CITALOPRAM 20 MG TABLET PO SCH (09:56)
[2017-01-13] MEDS: MEGESTROL 400 MG/10 ML UDCUP PO SCH ×2 (09:56→17:05)
[2017-01-13] MEDS: LEVOTHYROXINE 100 MCG TABLET PO SCH (09:57)
[2017-01-13] MEDS: ATORVASTATIN 20 MG TABLET PO SCH (09:57)
[2017-01-13] MEDS: CARVEDILOL 6.25 MG TABLET PO SCH ×2 (09:57→17:05)
[2017-01-13] MEDS: MAGNESIUM CHLORIDE 64 MG TABLET PO SCH (09:57)
[2017-01-13] MEDS: MULTIVITAMIN (INTRINSIC) CAPSULE PO SCH (09:57)
[2017-01-13] MEDS: MEMANTINE 10 MG TABLET PO SCH (09:57)
[2017-01-13] MEDS: CLOPIDOGREL 75 MG TABLET PO SCH ×3 (09:58→10:07)
[2017-01-13] MEDS: LIDOCAINE 5% PATCH TRANSDERM SCH (09:59)
[2017-01-13] MEDS: ZINC OXIDE PASTE 113 GM TUBE TOP SCH (10:07)
[2017-01-13 11:48] VITALS: BP 146/62
== END 2017-01-13 16:40 | DRG 682 ==
LOC: EDBD → EDUNIT# → N.ED 19:15 → SUATTDRO 23:34 → N.TELEN 23:52
PROVIDERS: ADMIT Family Medicine; ATTEND Hospitalist
PROC: EGDWPEG (ICD-10-PCS; 2017-01-11 10:35)

== ENCOUNTER 2017-01-15 18:33 | Inpatient (IN) ==
[2017-01-15] MEDS ORDERED: methylPREDNISolone SOD SUC 125 MG/2 ML VIAL IV STA (18:55)
[2017-01-15] MEDS ORDERED: diphenhydrAMINE 50 MG/1 ML VIAL IV STA (18:55)
[2017-01-15 19:36] LABS: Basophils % 0.5 % (0.0-0.8); Eosinophils % 0.6 % (0.00-10.9); Hemoglobin 12.3 GM/DL (12.0-16.0); Immature Granulocytes % 2.7 %; Immature Granulocytes Absolute 0.17 #; Lymphocytes # 1.3 10*3/uL (1.4-4.0); Lymphocytes % 20.3 % (21.3-54.2); Mean Corpuscular HGB Conc 34.2 GM/DL (32-36); Mean Corpuscular Hemoglobin 30 PG (27-34); Mean Corpuscular Volume 87.4 FL (87-102); Mean Platelet Volume 10.4 FL (9.6-12.0); Monocytes # 0.3 10*3/uL (0.11-0.8); Monocytes % 4.9 % (1.7-12.7); Neutrophils # 4.5 10*3/uL (1.4-7.4); Platelet Count 198 T/CUMM (130-400); Red Blood Count 4.12 MC/CUMM (3.8-5.5); Red Cell Distribution Width 15.6 % (9.3-17.3); White Blood Count 6.3 T/CUMM (4-12)
[2017-01-15 19:53] LABS: Alanine Aminotransferase 20 U/L (13-56); Albumin 2.4 G/DL (3.4-5.0); Alkaline Phosphatase 92 U/L (45-117); Aspartate Amino Transferase 15 U/L (0-37); Bilirubin,Total < 0.39 MG/DL (0.2-1.0); Blood Urea Nitrogen 19 MG/DL (7-18); Calcium 9.5 MG/DL (8.5-10.1); Glucose 212 MG/DL (74-106); Osmolality,Calculated 280.8 MOS/KG (273-304); Potassium 4.7 MMOL/L (3.5-5.1); Sodium 137 MMOL/L (136-145); Total Protein 6.7 G/DL (6.4-8.3)
[2017-01-15] MEDS ORDERED: diphenhydrAMINE 50 MG/1 ML VIAL ONE (19:53)
[2017-01-15] MEDS ORDERED: methylPREDNISolone SOD SUC 125 MG/2 ML VIAL ONE (19:53)
[2017-01-15 19:58] LABS: INR 0.9; PT Patient Result 9.9 SECS; Partial Thromboplastin Time < 21.0 SECS (0-40)
[2017-01-15 20:08] LABS: Ammonia < 10 UMOL/L (11-32)
[2017-01-15 20:40] LABS: Apearance,Urine CLEAR (Clear); Bilirubin,Urine Negative (Negative); Blood, Urine Negative (Negative); Glucose,Urine (UA) Negative (Negative); Ketones,Urine Negative (Negative); Mucus,Urine Occasional /LPF (Occasional); Nitrite,Urine Negative (Negative); Protein,Urine Negative; RBC,Urine <1 /HPF (0-4); Urine Color Yellow (Yellow); Urine Specific Gravity 1.006 (1.001-1.035); Urine Urobilinogen < 2.0 EU/DL (0.2-1.0); WBC,Urine 10 /HPF (0-6)
[2017-01-15] MEDS ORDERED: MAGNESIUM HYDROXIDE SUSP 30 ML UDCUP PEG PRN (20:42)
[2017-01-15] MEDS ORDERED: ACETAMINOPHEN 500 MG TABLET PEG PRN (20:42)
[2017-01-15] MEDS ORDERED: BISACODYL 10 MG SUPP RECTAL PRN (20:42)
[2017-01-15] MEDS ORDERED: DEXTROSE 50% 25 GM/50 ML VIAL IV PRN (20:55)
[2017-01-15] MEDS ORDERED: GLUCAGON 1 MG VIAL IM PRN (20:55)
[2017-01-15 20:58] LABS: Barbiturates Screen,Urine Negative (Negative); Benzodiazepines Screen,Urine Negative (Negative); Cannabinoid Screen,Urine Negative (Negative); Opiate Screen,Urine Negative (Negative); Phencyclidine Screen,Urine Negative (Negative)
[2017-01-15] MEDS ORDERED: INSULIN GLARGINE 100 UNIT/ML SUBCUT SCH (21:00)
[2017-01-15] MEDS: MEGESTROL 400 MG/10 ML UDCUP PEG SCH (23:39)
[2017-01-15] MEDS: ATORVASTATIN 20 MG TABLET PEG SCH (23:41)
[2017-01-15] MEDS: CARVEDILOL 25 MG TABLET PEG SCH (23:41)
[2017-01-15] MEDS: MULTIVITAMIN (INTRINSIC) CAPSULE PEG SCH (23:41)
[2017-01-16] MEDS: methylPREDNISolone SOD SUC 40 MG/1 ML VIAL IV SCH ×3 (01:36→16:08)
[2017-01-16 06:25] LABS: Basophils % 0.2 % (0.0-0.8); Hematocrit 28.2 VOL% (35.7-47.0); Immature Granulocytes % 2.1 %; Immature Granulocytes Absolute 0.13 #; Lymphocytes # 0.8 10*3/uL (1.4-4.0); Lymphocytes % 12.3 % (21.3-54.2); Mean Corpuscular HGB Conc 35.5 GM/DL (32-36); Mean Corpuscular Hemoglobin 31 PG (27-34); Mean Platelet Volume 10.6 FL (9.6-12.0); Monocytes # 0.1 10*3/uL (0.11-0.8); Monocytes % 1.1 % (1.7-12.7); Neutrophils # 5.1 10*3/uL (1.4-7.4); Neutrophils % 84.3 % (38.7-73.9); Platelet Count 203 T/CUMM (130-400); Red Blood Count 3.24 MC/CUMM (3.8-5.5); Red Cell Distribution Width 15.3 % (9.3-17.3); White Blood Count 6.1 T/CUMM (4-12)
[2017-01-16 06:52] LABS: Calcium 8.6 MG/DL (8.5-10.1); Magnesium 1.7 MG/DL (1.8-2.4); Potassium 5.1 MMOL/L (3.5-5.1)
[2017-01-16] MEDS: LEVOTHYROXINE 100 MCG TABLET PEG SCH (07:10)
[2017-01-16 07:12] LABS: Band Neutrophils 4 % (0-10); Giant Platelets Few; Hypochromasia 1+; Lymphocytes 14 % (20-55); Ovalocytes Slight; Platelet Estimate Adequate; Segmented Neutrophils 82 % (50-85); Total Cells Counted 100
[2017-01-16 07:13] LABS: Microcytosis Slight
[2017-01-16] MEDS ORDERED: MAGNESIUM SULF RIDER 4 GM in PREMIX 1 EACH IV PRN (09:02)
[2017-01-16] MEDS ORDERED: MAGNESIUM SULF RIDER 2 GM in PREMIX 1 EACH IV PRN (09:02)
[2017-01-16] MEDS: ASPIRIN 325 MG TABLET PEG SCH (09:31)
[2017-01-16] MEDS: MULTIVITAMIN (INTRINSIC) CAPSULE PEG SCH ×2 (09:31→22:21)
[2017-01-16] MEDS: CARVEDILOL 25 MG TABLET PEG SCH ×2 (09:32→22:21)
[2017-01-16] MEDS: CLOPIDOGREL 75 MG TABLET PEG SCH (09:32)
[2017-01-16] MEDS: FUROSEMIDE 40 MG TABLET PEG SCH (09:32)
[2017-01-16] MEDS: POTASSIUM CHLORIDE 20 MEQ/15 ML UDCUP PEG SCH (09:33)
[2017-01-16] MEDS: MEGESTROL 400 MG/10 ML UDCUP PEG SCH ×3 (09:33→22:20)
[2017-01-16] MEDS: PANTOPRAZOLE 40 MG VIAL IV SCH (09:34)
[2017-01-16] MEDS ORDERED: DEXTROSE 50% 25 GM/50 ML VIAL IV PRN (15:38)
[2017-01-16] MEDS: INSULIN REGULAR 100 UNIT/ML SUBCUT PRN ×2 (18:22→22:19)
[2017-01-16] MEDS: INSULIN GLARGINE 100 UNIT/ML SUBCUT SCH (22:20)
[2017-01-16] MEDS: ATORVASTATIN 20 MG TABLET PEG SCH (22:21)
[2017-01-17] MEDS: methylPREDNISolone SOD SUC 40 MG/1 ML VIAL IV SCH ×3 (00:20→16:11)
[2017-01-17] MEDS: INSULIN REGULAR 100 UNIT/ML SUBCUT PRN ×3 (00:32→16:11)
[2017-01-17] MEDS: LEVOTHYROXINE 100 MCG TABLET PEG SCH (06:23)
[2017-01-17] MEDS: ASPIRIN 325 MG TABLET PEG SCH (08:05)
[2017-01-17] MEDS: CLOPIDOGREL 75 MG TABLET PEG SCH (08:05)
[2017-01-17] MEDS: MULTIVITAMIN (INTRINSIC) CAPSULE PEG SCH ×2 (08:05→20:42)
[2017-01-17] MEDS: MEGESTROL 400 MG/10 ML UDCUP PEG SCH ×3 (08:05→20:42)
[2017-01-17] MEDS: POTASSIUM CHLORIDE 20 MEQ/15 ML UDCUP PEG SCH (08:05)
[2017-01-17] MEDS: CARVEDILOL 25 MG TABLET PEG SCH ×2 (08:05→20:42)
[2017-01-17] MEDS: FUROSEMIDE 40 MG TABLET PEG SCH (08:05)
[2017-01-17] MEDS: PANTOPRAZOLE 40 MG VIAL IV SCH (08:17)
[2017-01-17] MEDS: ATORVASTATIN 20 MG TABLET PEG SCH (20:42)
[2017-01-17] MEDS: INSULIN GLARGINE 100 UNIT/ML SUBCUT SCH (21:35)
[2017-01-18] MEDS: methylPREDNISolone SOD SUC 40 MG/1 ML VIAL IV SCH ×2 (01:13→08:36)
[2017-01-18] MEDS: LEVOTHYROXINE 100 MCG TABLET PEG SCH (05:56)
[2017-01-18 06:06] LABS: Calcium 8.6 MG/DL (8.5-10.1); Magnesium 2.1 MG/DL (1.8-2.4); Osmolality,Calculated 293.8 MOS/KG (273-304); Potassium 4.8 MMOL/L (3.5-5.1)
[2017-01-18] MEDS: MEGESTROL 400 MG/10 ML UDCUP PEG SCH (08:33)
[2017-01-18] MEDS: POTASSIUM CHLORIDE 20 MEQ/15 ML UDCUP PEG SCH (08:33)
[2017-01-18] MEDS: ASPIRIN 325 MG TABLET PEG SCH (08:34)
[2017-01-18] MEDS: PANTOPRAZOLE 40 MG VIAL IV SCH (08:34)
[2017-01-18] MEDS: MULTIVITAMIN (INTRINSIC) CAPSULE PEG SCH (08:34)
[2017-01-18] MEDS: CLOPIDOGREL 75 MG TABLET PEG SCH (08:34)
[2017-01-18] MEDS: CARVEDILOL 25 MG TABLET PEG SCH (08:34)
[2017-01-18] MEDS: FUROSEMIDE 40 MG TABLET PEG SCH (08:34)
[2017-01-18 11:58] VITALS: BP 129/60
== END 2017-01-18 13:04 | disposition home or self-care (01) | DRG 916 ==
LOC: EDUNIT# → N.ED 18:33 → SUATTDRO 20:38 → N.EDINP 20:38 → N.TELEN 21:20
PROVIDERS: ADMIT Internal Medicine Infectious Disease; ATTEND Internal Medicine